=== PATIENT | female | born 2000 | race African-American/Black ===

== ENCOUNTER 2023-04-10 10:50 | Emergency (ER) | payer OTHER, SELFPAY ==
[2023-04-10 10:59] VITALS: BP 107/73; PULSE 107; RESP 12; TEMP 36.6; O2SAT 99
--- NOTE | 2023-04-10 11:30 | ED_ITS ---
HPI - Allergic Reaction General Date Seen: 04/10/23 Chief complaint: Allergic Reaction Stated complaint: Allergic reaction this AM--itchy throat, nausea Time Seen by Provider: 04/10/23 11:12 Source: patient Mode of arrival: ambulatory Limitations: no limitations History of Present Illness HPI narrative: Patient is a 22-year-old female presenting to the emergency department for an allergic reaction. She states she has had some nausea and a scratchy throat so she went to her clinic on campus. They gave her Benadryl. After she got the Benadryl she has been feeling much better and states she almost feels back to normal other than a little bit of nausea. She states she was told by her wastewater treatment plant chemist to go to urgent care or emergency department whenever she has an allergic reaction to get a tryptase level checked. She states the neurology she is aware of his aches but does not remember having any aches today. She has been checked for several allergies in the past. Not know of any recent changes to nodular detergent, soaps, etc. no other concerns noted at this time Related Data Home Medications Medication Instructions Recorded Confirmed No Known Home Medications 04/10/23 04/10/23 Allergies Allergy/AdvReac Type Severity Reaction Status Date / Time Egg Derived Allergy Unknown Hives Verified 04/10/23 10:58 Review of Systems Status of ROS Reports: 10 or more systems reviewed and unremarkable except as noted in History and below Exam Narrative: Exam Narrative: Const: Well-nourished, Well-developed, in no distress Eyes: PERRL, no conjunctival injection, and symmetrical lids HENT: Atraumatic external nose and ears. Moist mucous membranes. Neck: Symmetric, trachea midline, No thyromegaly. CVS: RRR, No murmurs or gallops. Peripheral pulses 2+ and equal in all extremities RESP: Unlabored respiratory effort. Clear to auscultation bilaterally. GI: Nontender/Nondistended, No rebound or guarding. MSK:Extremities w/o deformity, Normal Active ROM Skin: Warm, Dry. No rashes or lesions. Neuro: Normal Muscle tone, No focal neurological deficits. Psych: Awake, Alert, & Oriented x3. Appropriate mood and affect. Const: Vital Signs, click to edit/add: Vital Signs - 24 hr 04/10/23 10:59 04/10/23 12:36 Temperature 97.8 F 97.8 F Pulse Rate [Pulse Oximeter] 107 H 107 H Respiratory Rate 12 12 Blood Pressure [Ri ght Upper Arm] 107/73 107/73 Pulse Oximetry 99 Oxygen Delivery Me thod Room Air Course Vital Signs Vital signs: Initial Vital Signs Temperature 97.8 F 04/10/23 10:59 Temperature Source Temporal Artery Scan 04/10/23 10:59 Pulse Rate 107 H 04/10/23 10:59 Pulse Rhythm Regular 04/10/23 10:59 Respiratory Rate 12 04/10/23 10:59 Blood Pressure 107/73 04/10/23 10:59 Blood Pressure Mean 84 04/10/23 10:59 Blood Pressure Position Sitting 04/10/23 10:59 Pulse Oximetry 99 04/10/23 10:59 Oxygen Delivery Method Room Air 04/10/23 10:59 Vital Signs Temperature 97.8 F 04/10/23 10:59 Pulse Rate 107 H 04/10/23 10:59 Respiratory Rate 12 04/10/23 10:59 Blood Pressure 107/73 04/10/23 10:59 Pulse Oximetry 99 04/10/23 10:59 Oxygen Delivery Method Room Air 04/10/23 10:59 Temperature 97.8 F 04/10/23 12:36 Pulse Rate 107 H 04/10/23 12:36 Respiratory Rate 12 04/10/23 12:36 Blood Pressure 107/73 04/10/23 12:36 Pulse Oximetry 99 04/10/23 10:59 Oxygen Delivery Method Room Air 04/10/23 10:59 Medications Administered Medications: Discontinued Medications Generic Name Dose Route Start Last Admin Trade Name Charbelq PRN Reason Stop Dose Admin Ondansetron HCl 4 mg 04/10/23 11:44 04/10/23 11:45 Ondansetron Odt 4 Mg Tab PO 04/10/23 11:45 4 mg ONCE ONE Administration MDM - Allergic Reaction MDM Narrative Medical decision making narrative: Patient is a 22-year-old female presenting to emergency department for an allergic reaction. Symptoms have resolved at this time. I offered her some Zofran so for her mild nausea but she states she did not want any. She states she feels back to normal at this time and just wants surgery taste level checked. This was ordered. Vital signs are stable and physical exam shows no concerning findings. While she was getting labs done she is feeling more nauseated and this time accepted Zofran. I believe she is safe for discharge. She is agreeable to this plan. Tryptase level is a send out lab Discharge Plan Discharge Clinical Impression: Allergic reaction Qualifiers: Encounter type: initial encounter Qualified Code(s): T78.40XA - Allergy, unspecified, initial encounter Patient Disposition: Home, Self-Care Condition: Improved Instructions: General Allergic Reaction (ED) Additional Instructions: Return for new worsening symptoms. A tryptase level will return next few days Prescriptions: No Action No Known Home Medications Follow Up/Referrals: Provider,Not a Local [Primary Care Provider] - Stand Alone Forms: Vital Energi Info Instructions
--- OUTSIDE RECORDS SUMMARY | 2023-04-10 11:37 | XMS_ITS | Clinical Summary ---
Author Name Unknown Organization [facility] Address [address] [place] [address] Care Team Providers Care Instructor Of Spanish Name Role Phone Scotty Mora MD Primary Care Provider [phone] Source Comments You are receiving this document as you are listed as the primary care provider,follow-up provider, or the patient has been referred to you for consultation.This is in compliance with the Medicare and[facility] E[facility]centive [facility],which states Providers who transition their patient to another setting of careor provider of care or refers their patient to another provider of care shouldprovide summary care record for each transition of care or referral. [employer] Allergies Active Allergy Reactions Criticality Noted Date Comments Eggs Or Egg-Derived Products Rash,Nausea And Vomiting [employer] 10/15/2018 Medications Medication Sig Dispensed Refills Start Date End Date Status EPINEPHrine (EPIPEN 2-DORIE) 0.3 MG/0.3ML injectionIndicatio ns:Allergy to eggs Inject 0.3 mL intramuscularly once as needed for up to 1 dose. 1 Each 2 11/20/2020 Active ALBUterol sulfate HFA 108 (90 Base) MCG/ACT inhalerIndications :Mild intermittent asthma without complication (HRC) Inhale 2 Puffs every 4 hours as needed for Wheezing, Shortness of Breath or Other. Also use 15-30 min prior to exercise 1 Each 6 11/20/2020 Active Multiple Vitamin Essential Take 1 Tablet by mouth daily. 30 Tablet 11 02/15/2022 Active ferrous fumarate 325 (106 Fe) MGIndications:Iron Deficiency Take 1 Tablet by mouth daily with food. Indications: Iron Deficiency 90 Tablet 3 05/17/2022 Active EPINEPHrine (EPIPEN) 0.3 MG/0.3ML injection Inject 0.3 mL (0.3 mg) intramuscularly as needed (for allergic reaction). May repeat. 2 Each 11 10/14/2022 Active azelastine (ASTELIN) 0.1 % nasal solutionIndication s:Epistaxis,Season al allergic rhinitis due to pollen Place 1 [place] into both nostrils two times a day. 30 mL 3 01/03/2023 Active Additional Information Patient not taking.Reported on 02/18/2023 flunisolide (NASAREL) 25 MCG/ACT (0.025%) nasal solutionIndication s:Seasonal allergic rhinitis due to pollen,Hypertrophy of nasal turbinates Place 2 Sprays into both nostrils two times a day. 15 mL 6 02/18/2023 Active Active Problems Problem Noted Date Diagnosed Date PTSD (post-traumatic stress disorder) 03/17/2023 Generalized anxiety disorder 03/17/2023 Flat foot 10/26/2020 Overview: Added automatically from request for surgery [id number] Vesicular skin lesions 08/31/2020 Social anxiety in childhood 08/31/2020 Soft tissue mass 12/31/2018 Overview: Added automatically from request for surgery [id number] Mild intermittent asthma 12/13/2013 Allergy to eggs 11/14/2011 Allergic rhinitis 01/11/2011 Allergic conjunctivitis 01/11/2011 Resolved Problems Problem Noted Date Diagnosed Date Resolved Date CAREPLAN: [facility] 4 08/17/2013 Overview: Background: Engaged in Disease Management-Asthma:Gabriela Anthony RN [phone] Goals/Recommendations: Asthma 01/07/2012 01/07/2012 Allergy to peanuts 01/11/2011 2 Encounters Date Type Department Care Team Description 02/27/2023 10:20 PM HANDBAG DESIGNER E-Visit [facility] [address] [place] [address] Scotty Mora MD Dx: Social anxiety in childhood (HRC) (Primary Dx) 02/18/2023 11:15 AM HANDBAG DESIGNER [facility] [address] [place] [address] Tracie Michael PA-C DNS (deviated nasal septum) (Primary Dx); Seasonal allergic rhinitis due to pollen; Hypertrophy of nasal turbinates; Rhinorrhea; Nasal obstruction 01/14/2023 2:45 PM CDT Ancillary Procedure [facility] [place] [address] [place] [address] Tracie Michael PA-C TMJ (temporomandibular joint disorder) from Last 3 Months Immunizations Name Administration Dates Next Due 4vHPV (Gardasil) 10/24/2014 9vHPV (Gardasil 9) 11/29/2015,11/29/2014 DTaP 06/24/2007, 5,04/25/2003,2002,2002 Flu Vac (3+ yrs) 01/20/2021 Q5D5-Oeyxitybmv 03/30/2009,02/22/2009 HepA Ped/Adol (1-18 yrs) 10/06/2008,10/13/2007 HepA, Unspecified Formulation 10/06/2008, 008 HepB Adult (Heplisav-B, 19+ yrs, 2 dose series) 12/06/2021 Hib (ActHIB) 12/30/2005 Hib (HbOC) 12/30/2005 Hib, Unspecified Formulation 12/31/2003,04/25/19 04 Hib/HBV 11/22/2003,03/01/2003,2002 IPV (Polio) 06/24/2007, 4,03/01/2003,2002 Influenza IIV4 (Quadrivalent ) 0.5mL (31391) 02/15/2022,01/14/2020,12/01/2018,2017,05/16/2017,11/29/2015,01/04/2015 Influenza LAIV (Nasal, 2-49 yrs) 01/07/2013 Influenza Vaccine (3+years) ([facility]) 03/23/2008,02/22/2005 MCV4 (Menactra) 07/16/2013 MCV4 Menveo 2m.+ (two vial) 10/15/2018, 4 MMR 06/24/2007,11/22/2003 Pfizer Bivalent 12+ 02/15/2022 Pfizer Monovalent 12+ Purple Top 04/17/2021,09/28,09/21/2020 Pneumococcal 7, PED 11/15/2004, 4,03/01/2003,2002 Tdap 11/25/2012 Typhoid (Typhim Vi, IM) 07/16/2013 Varicella 06/24/2007,11/22/2003 Family History Medical History Relation Name Comments Cataract Negative Family History Glaucoma Negative Family History Macular Degeneration Negative Family History Relation Name Status Comments Father Alive Mother Alive Brother Alive Sister 1 Alive Sister 2 Alive Social History Tobacco Use Types Packs/Day Years Used Date Smoking Tobacco: Never Smokeless Tobacco: Never Comments:No smoke exp Alcohol Use Standard Drinks/Week Comments No 0 (1 standard drink = 0.6 oz pur e alcohol) PHQ-2 Answer Date Recorded PHQ-2 Score 0 02/15/2022 Sex and Gender Information Value Date Recorded Sex Assigned at Not on file Gender Identity Not on file Sexual Orientation Not on file Last Filed Vital Signs Vital Sign Reading Time Taken Comments Blood Pressure 106/72 10/14/2022 3:29 PM CDT Pulse 93 10/14/2022 3:29 PM CDT Temperature 36.3 ??C (97.3 ??F) 10/14/2022 3:29 PM CD T Respiratory Rate 16 10/14/2022 3:29 PM CDT Oxygen Saturation 100% 09/09/2022 9:03 PM CDT Inhaled Oxygen Concentration - - Weight 57.7 kg (127 lb 3.2 oz) 10/14/2022 3:29 P M CDT Height 167.6 cm (5' 6) 10/14/2022 1:49 PM CDT Body Mass Index 20.53 10/14/2022 1:49 PM CDT Plan of Treatment Upcoming Encounters Date Type Department Care Team Description 05/16/2023 11:40 AM HANDBAG DESIGNER Appointment [facility] [address] [place] [address] Suzanne Joshua MD [address] [place], [place] [phone] Health Maintenance Due Date Last Done Comments Hep C Screening (Preventive Services) 2002 Pneumococcal (1 - PCV) 2008 5, 04/25/2003, 03/01/2003, Additional history exists Chlamydia 10/16/2019 10/15/2018 Adult Preventive Visit 11/20/2021 , 01/14/2020, 10/15/2018, Additional history exists DTaP/Tdap/Td (7 - Tdap) 11/25/2022 11/26/19 13, 06/24/2007, 11/15/2004, Additional history exists COVID-19 Vaccine (5 - 2022-2 4 season) 2022 02/15/2022, 04/17/2021, 10/13/2020, Additional history exists Influenza (#1) 2022 02/15/2022, 12/30, 01/14/2020, Additional history exists Asthma ACT 02/15/2023 02/15/2022, 01/29, 03/07/2020, Additional history exists Zoster/Shingles (1 of 2) 2052 Hib Completed 12/30/2005, 05/2005, 12/31/2003, Additional history exists IPV (Polio) Completed 06/24/2007, 04/01, 03/01/2003, Additional history exists Varicella Completed 06/24/2007, 11/22/2003 HepA Completed 10/06/2008, 11/2008, 10/13/2007, Additional history exists HPV Vaccine Completed 11/29/2015, 03/2014, 10/24/2014 HIV Screening (Preventive Services) Completed 10/15/2018 MCV4 Completed 10/15/2018, 06/29, 07/16/2013 HepB Completed 12/06/2021, 10/30, 03/01/2003, Additional history exists Medical Devices Implanted Type Area Kitchen Food Assembler Device Identifier Shelf Expiration Date Model / Serial / Lot Bone Blck Tricort Lg - [id number] Implanted:Qty: 1 on 02/26/2021 by Dk Rocha DPM at [facility] BIOLOGIC Right: FOOT [employer] - [employer] 07/19/2025 [id number] / [id number] / Bone Chip Canc 15cc 82392 - [id number] Implanted:Qty: 1 on 02/26/2021 by Dk Rocha DPM at [facility] BIOLOGIC Right: FOOT [employer] - [employer] 07/19/2025 [id number] / [id number] / Plt Profyle Hand Lk 3-D 3x2h - [id number] Implanted:Qty: 1 on 02/26/2021 by Dk Rocha DPM at [facility] DEVICE Right: FOOT [employer] [id number] / / 1.7 X 14mm Variax 2 Non Locking Screw Implanted:Qty: 1 on 02/26/2021 by Dk Rocha DPM at [facility] DEVICE Right: FOOT [id number] / NA / NA Variax 2 Locking Screw Implanted:Qty: 2 on 02/26/2021 by Dk Rocha DPM at [facility] DEVICE Right: FOOT [id number] / / Variax 2 Locking Screw Implanted:Qty: 1 on 02/26/2021 by Dk Rocha DPM at [facility] DEVICE Right: FOOT [id number] / / Procedures Procedure Name Priority Date/Time Associated Diagnosis Comments AEROBIC CULTURE Routine 02/18/2023 11:58 AM HANDBAG DESIGNER Rhinorrhea CT NECK SOFT TISSUE W IV CONT Routine 01/14/2023 3:42 PM CDT TMJ (temporomandibular joint disorder) CREATININE/GFR, WB POC Routine 01/14/2023 2:59 PM CDT from Last 3 Months Results * Aerobic Culture (02/18/2023 11:58 AM HANDBAG DESIGNER) Aerobic Culture Normal Babs; No Pathogens Present 02/23/2023 2:13 PM HANDBAG DESIGNER [facility] Gram Smear Rare PMN's Present 02/23/2023 2:13 PM HANDBAG DESIGNER [facility] Gram Smear No Organisms Seen 02/23/2023 2:13 PM HANDBAG DESIGNER [facility] Drainage NOSE AND NASOPHARYNX STRUCTURE / Unknown Non-blood Collection / Unknown 02/18/2023 11:58 AM HANDBAG DESIGNER 02/18/2023 4:32 PM HANDBAG DESIGNER Tracie Micahel PA-C LAB_[address] [address], [facility] [phone] * CT Neck Soft Tissue W IV Cont (01/14/2023 3:42 PM CDT) Anatomical Region Laterality Modality Neck, C-Spine, Spine, Vascular C omputed Tomography 01/14/2023 3:42 PM CDT Narrative 01/15/2023 9:58 AM CDT EXAM: CT NECK SOFT TISSUE W IV CONT LOCATION: [facility] DATE: 01/14/2023 INDICATION: Soft tissue swelling, infection suspected, neck xray done, Unspecified temporomandibular joint disorder. COMPARISON: None. CONTRAST: IOHEXOL 350 MG/ML IV SOLN 100 mL TECHNIQUE: Routine CT Soft Tissue Neck with IV contrast. Multiplanar reformats. Dose reduction techniques were used. FINDINGS: MUCOSAL SPACES/SOFT TISSUES: Normal mucosal spaces of the upper aerodigestive tract. No mucosal mass or inflammation identified. Normal vocal cords and infraglottic trachea. Normal parapharyngeal space and subcutaneous soft tissues. Normal oral cavity, surgery scheduler spaces, and floor of mouth structures. LYMPH NODES: No pathologic lymph nodes by size or morphology criteria. SALIVARY GLANDS: Normal parotid and submandibular glands. THYROID: Normal. VESSELS: Vascular structures of the neck are patent. VISUALIZED INTRACRANIAL/ORBITS/SINUSES: No abnormality of the visualized intracranial compartment or orbits. Visualized paranasal sinuses and mastoid air cells are clear. OTHER: No destructive osseous lesion. The included lung apices are clear. IMPRESSION: 1. ??Normal soft tissue neck CT. Procedure Note Charli Rodrigues MD - 01/15/2023 EXAM: CT NECK SOFT TISSUE W IV CONT [facility] DATE: 01/14/2023 INDICATION: Soft tissue swelling, infection suspected, neck xray done,Unspecified temporomandibular joint disorder. COMPARISON: None. CONTRAST: IOHEXOL 350 MG/ML IV SOLN 100 mL TECHNIQUE: Routine CT Soft Tissue Neck with IV contrast. Multiplanarreformats. Dose reduction techniques were used. FINDINGS: MUCOSAL SPACES/SOFT TISSUES: Normal mucosal spaces of the upperaerodigestive tract. No mucosal mass or inflammation identified. Normalvocal cords and infraglottic trachea. Normal parapharyngeal space andsubcutaneous soft tissues. Normal oral cavity, surgery scheduler spaces, andfloor of mouth structures. LYMPH NODES: No pathologic lymph nodes by size or morphology criteria. SALIVARY GLANDS: Normal parotid and submandibular glands. THYROID: Normal. VESSELS: Vascular structures of the neck are patent. VISUALIZED INTRACRANIAL/ORBITS/SINUSES: No abnormality of the visualizedintracranial compartment or orbits. Visualized paranasal sinuses andmastoid air cells are clear. OTHER: No destructive osseous lesion. The included lung apices areclear. IMPRESSION: 1. Normal soft tissue neck CT. Tracie Michael PA-C RAD CT * (ABNORMAL) Creatinine/GFR, WB POC (01/14/2023 2:59 PM CDT) Creatinine, Whole Blood 0.5(L) 0.6 - 1.0 mg/dL 01/14/2023 3:03 PM CDT [facility] Performing Location [facility] 01/14/2023 3:03 PM CDT [facility] GFR, Estimated >60 >60 mL/min/1.7 3m2 01/14/2023 3:03 PM CDT [facility] Blood 01/14/2023 2:59 PM CDT 01/14/2023 3:03 PM CDT Tracie M Fernanda FINK [facility] [address] [place] [address], [facility] [phone] from Last 3 Months Advance Directives Latest Code Status on File Code Status Date Activated Date Inactivated Comments Full Code 02/26/2021 6:23 AM 02/26/2021 2:20 PM Code Status History Code Status Date Activated Date Inactivated Comments Full Code 03/22/2019 11:22 AM 03/22/2019 4:08 PM Care Teams Instructor Of Spanish Relationship Specialty Start Date End Date Scotty Mora MD [address] [place], [place] [phone] PCP - General Internal Medicine 05/15/16
--- OUTSIDE RECORDS SUMMARY | 2023-04-10 11:37 | XMS_ITS | Encounter Summary ---
Author Name Unknown Organization [facility] Address [address] [place] [address] Care Team Providers Care Civil Geotechnical Engineer Name Role Phone Scotty Mora MD Primary Care Provider [phone] Reason for Referral * Consult/Transfer Care (Routine) - New Request Specialty Diagnoses / Procedures Referred By García ross Referred To Contact Diagnoses Social anxiety in childhood (HRC) Scotty Mora MD [address] [place] [address] Referral ID Status Reason Start Date Expiration Date V isits Requested Visits Authorized [id number] New Request 03/05/2023 06/03/2024 1 1 Scheduling Instructions Your clinician has recommended an appointment with Behavioral Health. You may call [phone] to schedule your appointment. This recommended service/s may not be covered by your health plan (health insurance). To find out your specific benefit coverage, please call the number on your insurance card.?? Please note that in order to maintain access for all patients, Behavioral Health does have a late cancellation policy.?? In order to avoid being restricted from scheduling future appointments in Behavioral Health you will need to cancel at least 48 hours in advance. We request you that you arrive 30 minutes before your first appointment to complete paperwork. Question Answer Appointment Urgency? Urgent Reason for request? Female provider please. 22-year-old female with severe social anxiety. Please assist with counseling. Requested Services? Therapy/Counseling Pt aware and agrees to this order: Confirmed with patient PEDIATRICIAN Reason for Visit * Reason Comments REFERRAL REQUEST Entered automaticall y based on patient selection in [facility]. Encounter Details Date Type Department Care Team Description 02/27/2023 10:20 PM PODOPEDIATRICIAN E-Visit [facility] [address] [place] [address] Scotty Mora MD [address] [place] [address] Dx: Social anxiety in childhood (HRC) (Primary Dx) Social History Tobacco Use Types Packs/Day Years [...] on file Sexual Orientation Not on file documented as of this encounter Plan of Treatment Upcoming Encounters Date Type Department Care Team Description 05/16/2023 11:40 AM PODOPEDIATRICIAN Appointment [facility] [address] [facility] [place], [place] [phone] Suzanne Joshua MD [address] [place] [id number] Scheduled Referrals Name Type Priority Associated Diagnoses Orde r Schedule Behavioral Health Referral Routine Social anxiety in childhood (HRC) Ordered: 03/05/2023 documented as of this encounter Visit Diagnoses Diagnosis Social anxiety in childhood (HRC)- Primary Shyness disorder of childhood documented in this encounter Care Teams Civil Geotechnical Engineer Relationship Specialty Start Date End Date Scotty Mora MD [address] [place] [address] PCP - General Internal Medicine 05/15/16 documented as of this encounter
--- OUTSIDE RECORDS SUMMARY | 2023-04-10 11:38 | XMS_ITS | Encounter Summary ---
Author Name Unknown Organization [facility] Address [address], [place] [address] Care Team Providers Care Elephant Tamer Name Role Phone Scotty Mora MD Primary Care Provider Reason for Visit * Reason Comments FOLLOW-UP,ER * Consult/Transfer Care (Routine) - Closed Specialty Diagnoses / Procedures Referred By García t Referred To Contact Diagnoses Atypical chest pain Mike Crowley MD [address] [place] [id number] Referral ID Status Reason Start Date Expiration Date Visits Re quested Visits Authorized [id number] Closed 09/09/2022 12/08/2022 1 1 Encounter Details Date Type Department Care Team Description 10/14/2022 3:30 PM CDT Office Visit [facility] [address] [facility] [place], [place] [phone] Scotty Mora MD [address] [place], [place] [phone] Precordial catch syndrome (Primary Dx); Mild intermittent asthma without complication (HRC); Social anxiety disorder (HRC) Social History Tobacco Use Types Packs/Day Years [...] on file documented as of this encounter Last Filed Vital Signs Vital Sign Reading Time Taken Comments Blood Pressure 106/72 10/14/2022 3:29 PM CDT Pulse 93 10/14/2022 3:29 PM CDT Temperature 36.3 ??C (97.3 ??F) 10/14/2022 3:29 PM CD T Respiratory Rate 16 10/14/2022 3:29 PM CDT Oxygen Saturation - - Inhaled Oxygen Concentration - - Weight 57.7 kg (127 lb 3.2 oz) 10/14/2022 3:29 P M CDT Height - - Body Mass Index 20.53 10/14/2022 1:49 PM CDT documented in this encounter Patient Instructions * Patient Instructions* Scotty Mora MD - 10/14/2022 3:30 PM CDT Go to [employer] and login using forgot password. Commit to seeing a counselor for anxiety and even bring up other concerns as you feel comfortable. Send me a message in the next 6 weeks to give me an update. NO concerns about the chest pain. If it is changing let me know. * Attachments The following attachments cannot be sent through Care Everywhere. * Social Anxiety Disorder (Khmer) documented in this encounter Progress Notes * Scotty Mora MD - 10/14/2022 3:30 PM CDT Historical: Chief Complaint Patient presents with FOLLOW-UP,ER Emergency Department Follow-Up Which emergency department were you seen at? [facility] Date of Emergency Department Visit? September 09 What were you seen for? Chest pain Do you know what tests were performed while you were there? YES, X-ray and ekg Did you receive any treatment(s) in the emergency room? No Since you were seen in the emergency department, have your symptoms improved, worsened or stayed the same? Stayed the same- pain comes and goes Since about age 9. Sharp pain, usually about 30 seconds duration, can take her breath away for a few seconds. Then goes away. Typically about once every 6 months. In the past 2 years about every 1-2 months and now about everyother week. Seen at [facility]. ECG normal, CXR normal. Mild intermittent asthma, typically would be dyspnea, wheezing, coughing. Triggers: Cold air. URI and pollen. No ER/UC or steroids in the past year. Albuterol less than every month. 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 Social anxiety has gotten worse. Has some friends but not really close. One friend from high school. I have personally reviewed the patient's allergies, medications, and past medical history in detailand updated the patient record as necessary. Observed: BP 106/72 (BP Location: Right Arm, BP Cuff Size: Regular) Pulse 93 Temp 97.3 ??F (36.3 ??C) (Tympanic) Resp 16 Wt 127 lb 3.2 oz (57.7 kg) LMP 09/30/2022 (Approximate) BMI 20.53 kg/m?? Physical Exam: General: Appears stated age, alert and comfortable HEENT: PERRL, no conjunctival injection, TM's and canals normal, Neck: Supple, thyroid normal, no nodes, no bruits CV: regular rate and rhythm, normal S1 and S2 without murmur or click. No tenderness over the sternum-costal margin Skin: no significant abnormalities noted Ext: warm and dry, no edema present. Assessment/Plan: Recurrent chest pain. Sharp in nature and localized. Lasting seconds to a few minutes and worse with a deep breath. ECG normal, chest x-ray normal. Typical for precordial catch syndrome. We reviewed the diagnosis. Mild intermittent asthma. Infrequent albuterol use. Okay to continue current therapy. Social phobia. Struggling with some isolation on her college campus. 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 I have recommended and referred her for counseling in the past but she had mentioned that her mother instead thought she should go to yazdanism more. She is aware of counseling services on the college campus. She will commit to pursuing the services for assistance with her social phobia. She does not want medication therapy. No suicidal ideation. Follow-up in 2 months. Please see orders and patient instructions Scotty Mora MD documented in this encounter Plan of Treatment Upcoming Encounters Date Type Department Care Team Description 05/16/2023 11:40 AM OVERNIGHT HOUSEPERSON Appointment [facility] [address] [facility] [place] [address] Suzanne Joshua MD [address] [place], [place] [phone] Scheduled Referrals Name Type Priority Associated Diagnoses Orde r Schedule Establish Primary Care Referral Routine Atypical chest pain Ordered: 09/09/2022 documented as of this encounter Visit Diagnoses Diagnosis Precordial catch syndrome- Primary Chest pain, unspecified Mild intermittent asthma without complication (HRC) Unspecified asthma Social anxiety disorder (HRC) Social phobia documented in this encounter Care Teams Elephant Tamer Relationship Specialty Start Date End Date Scotty Mora MD [address] [place] [address] PCP - General Internal Medicine 05/15/16 documented as of this encounter
--- OUTSIDE RECORDS SUMMARY | 2023-04-10 11:38 | XMS_ITS | Encounter Summary ---
Author Name Unknown Organization [facility] Address [address], [place] [address] Care Team Providers Care Dermatological Surgeon Name Role Phone Scotty Mora MD Primary Care Provider [phone] Reason for Visit * Reason Comments APPOINTMENT REQUEST Encounter Details Date Type Department Care Team Description 12/31/2022 Telephone [facility] [address] [place] [address]. [place] [address] Suzanne Joshua MD [address] [place] [phone] APPOINTMENT REQUEST Social History Tobacco Use Types Packs/Day Years [...] on file documented as of this encounter Nursing Notes * Oneida Patrick - 01/03/2023 8:23 AM CDT Incoming call from patient's mother, Vicenta, yesterday (01/02). Mother was offered the next available and she declined. * Oneida Patrick - 01/01/2023 9:39 AM CDT [email or web address] - no mailroom coordinator needed * Gladys Conti RN - 12/31/2022 2:09 PM CDT Pt can be scheduled next available. Gladys Conti RN 12/31/2022, 2:09 PM * Hamida Miller - 12/31/2022 12:41 PM CDT No referral found on chart, only referrals from 2021 mentioning allergies. Please advise if pt should be seen sooner than next available, thank you Hamida Miller 12/31/2022, 12:42 PM * Liza Lomeli - 12/31/2022 12:38 PM CDT Appointments - Same Day/Sooner Patient would like appointment with: her ENT provider Primary Cobbler Apprentice: Scotty Mora MD If requested clinician is unavailable, is it okay to be seen by another clinician? Yes Patient requesting appointment for: Problems with mouth and jaw, referral has been sent. Wants/Needs to be seen within: 2 week(s) Is it okay to leave detailed message on your voicemail? Yes documented in this encounter Plan of Treatment Upcoming Encounters Date Type Department Care Team Description 05/16/2023 11:40 AM SCHOOL BUS MECHANIC Appointment [facility] [address] [place] [address]. [place] [id number] Suzanne Joshua MD [address] [facility] [id number] documented as of this encounter Visit Diagnoses Not on filedocumented in this encounter Care Teams Dermatological Surgeon Relationship Specialty Start Date End Date Scotty Mora MD [address] [place] [id number] PCP - General Internal Medicine 05/15/16 documented as of this encounter
--- OUTSIDE RECORDS SUMMARY | 2023-04-10 11:38 | XMS_ITS | Encounter Summary ---
Author Name Unknown Organization [facility] Address [address] [address] Care Team Providers Care Straightedge Machine Operator Helper Name Role Phone Scotty Mora MD Primary Care Provider [phone] Reason for Visit * Reason Comments CONSULT Allergies/Asthma * Consult/Transfer Care (Routine) - New Request Specialty Diagnoses / Procedures Referred By Contac t Referred To Contact Diagnoses Allergic rhinitis, unspecified seasonality, unspecified trigger Pedro Menard, TIMING INSPECTOR, DNP [address] [place] [address] Referral ID Status Reason Start Date Expiration Date V isits Requested Visits Authorized [id number] New Request 02/15/2022 05/17/2023 1 1 Encounter Details Date Type Department Care Team Description 10/14/2022 1:15 PM CDT [facility] [address] [place] [address]. [place] [address] Maya Dowling MD [address] [place] [address] Breathing Test, Hs Allergy Allergy to eggs (Primary Dx); Anaphylaxis, initial encounter Social History Tobacco Use Types Packs/Day Years [...] Sign Reading Time Taken Comments Blood Pressure 102/67 10/14/2022 1:49 PM CDT Pulse 99 10/14/2022 1:49 PM CDT Temperature - - Respiratory Rate - - Oxygen Saturation - - Inhaled Oxygen Concentration - - Weight 58.1 kg (128 lb 1.6 oz) 10/14/2022 1:49 P M CDT Height 167.6 cm (5' 6) 10/14/2022 1:49 PM CDT Body Mass Index 20.68 10/14/2022 1:49 PM CDT documented in this encounter Patient Instructions * Patient Instructions* Maya Dowling MD - 10/14/2022 1:15 PM CDT Labs today Don't use that oil again It would be unlikely that something topical caused reactions like nausea, diarrhea, shortness of breath. Will check some additional labs since you had these symptoms as well Please recheck a tryptase within 2 hours of future suspected allergic reactions (I ordered so if [facility] can just request, otherwise please take a photo of this and show an ER or UC physician to order) Epipen if needed Continue eating baked egg! I recommend doing this most days (at least 3x/week) which appears to make resolution of egg allergy more likely Baked egg=3rd ingredient or lower on ingredient list or 1 egg per cup of flour in 6 servings. No more than one serving at a time. If the smell of it cooking bothers you OK to just keep going with the donuts three times a week. :) Follow-up with myself or Dr. Goncalves in a year, sooner if needed documented in this encounter Progress Notes * Maya Dowling MD - 10/14/2022 1:15 PM CDT S: Josie Worrell is here for follow-up, previously saw Dr. Goncalves. From her note in 2019: Pt and mother report a life long history of egg allergy. She was previously followed by Dr. Stanley. She had positive IgE to egg. Mom and patieint have a hard time providing detailed history. In the past she has had facial swelling and difficulty breathing with eggs. She reports that she was toleratedbaked egg rarely. This summer she ate donuts and developed immediate facial swelling. She has avoided all baked egg and straight egg since that time. They have epipen but she has never had to use. She is tolerating peanuts, wheat, milk. Had testing done in the past for these foods, but toleratesthem without reaction. This summer she ate pistachios and 1 day later developed itching red rash on stomach. Rash lasted 4weeks and resolved with use of topical hydrocortisone. They have a hard time characterizing rash. Raised red patches that were itchy. Did not migrate like hives. No other associated symptoms. Eats nuts very rarely, but has tolerated almonds before. She has mild occasional rhinorrhea and sneezing. No seasonal correlation. No nasal congestion. Pt reports she is minimally bothered by this. Not using any nasal sprays or allergy meds. Flonase has been prescribed in the past. She has a history of mild intermittent asthma. Exercise and cold can trigger. Only uses albuterol several times per year. Last use about 1 year ago. Does not use before exercise. She doesn't have a reason for seeing a new provider, she was happy with her last one but her mom made this appointment. At last visit skin testing negative to pistachio, + to egg, recommended avoiding all egg including baked. Also + to dust, discussed avoidance, did trial flonase, discussed SCIT/SLIT. Asthma was well controlled, continued albuterol prn Interim history: She is here for a new problem. In March of this year she used a new hair oil that was her sisters. About 10 minutes later her stomach was hurting she had vomiting and diarrhea, herhead was itchy, she developed some facial swelling and felt short of breath. She shows a photo was some mild swelling around her nose and eyes. She took Benadryl and went to bed and it was improved but still present the next day. Then it resolved. She does not think that she accidentally eat any eggs. She had not really eaten anything around that time. She does eat beef at times but does not remember if she would had that around that time. She did try eating baked egg in a doughnut and it went well so she can continue to do that. She does have dust mite allergy but does not think that dust mite exposure would have caused her symptoms. No new medications/NSAIDs around that time O: O: Gen: NAD HEENT: NCAT, Nose normal colored mucosa, no swelling of turbinates, minimal clear mucus, no polyps OP no exudate or erythema Lungs: Clear bilaterally to auscultation without wheezes or crackles and good aeration to the bases. CV: RRR Skin: no hives or eczema noted 01/14/2020 4:00 PM 03/07/2020 2:45 PM 02/15/2021 1:30 PM 02/15/2022 1:00 PM 10/14/2022 1:15 PM SPIROMETRY / BEVERLY / ACT BEVERLY 23 39 FVC Best 2.62 2.64 FVC % 75 65 FEV1 Best 2.35 2.35 FEV1 % 75 66 FEV1/FVC [id number] 89.02 ACT Adult Total 20 25 21 25 Spirometry is unchanged, does appear restricted. BEVERLY is intermediate. ACT indicates good control. Independently interpreted. A/P: 1. Egg allergy, tolerates baked 2. Reaction does sound significant and like it could be anaphylaxis, we do discuss that it would be very unusual for a topical hair product to cause anaphylaxis however. Patient Instructions Labs today Don't use that oil again It would be unlikely that something topical caused reactions like nausea, diarrhea, shortness of breath. Will check some additional labs since you had these symptoms as well Please recheck a tryptase within 2 hours of future suspected allergic reactions (I ordered so if [facility] can just request, otherwise please take a photo of this and show an ER or UC physician to order) Epipen if needed Continue eating baked egg! I recommend doing this most days (at least 3x/week) which appears to make resolution of egg allergy more likely Baked egg=3rd ingredient or lower on ingredient list or 1 egg per cup of flour in 6 servings. No more than one serving at a time. If the smell of it cooking bothers you OK to just keep going with the donuts three times a week. :) Follow-up with myself or Dr. Goncalves in a year, sooner if needed TT>40m including F2F, chart review and documentation documented in this encounter Plan of Treatment Upcoming Encounters Date Type Department Care Team Description 05/16/2023 11:40 AM FIREMAN Appointment [facility] 401 Otolaryngology 401 [facility]. [place], [place] [phone] Suzanne Joshua MD [address] [place] [address] Scheduled Orders Name Type Priority Associated Diagnoses Orde r Schedule Tryptase Total Lab Routine Allergy to eggs Anaphylaxis, initial encounter Expected: 10/28/2022 (Approximate), Expires: 04/16/2024 documented as of this encounter Results * Alpha-Galactose, IgE (10/14/2022 2:32 PM CDT) IgE Alpha Galactose <0.10 <0.10 kU/L 10/15/2022 12:59 AM CDT [facility] Comment:Class = 0 Blood Venipuncture / Unknown 10/14/2022 2:32 PM CDT 10/14/2022 2:32 PM CDT Narrative [facility] - 10/15/2022 12:59 AM CDT Clinical correlation is indicated for all class levels. Any diagnosis or treatment plan must be made by the clinician based on test results, individual history, the clinician's knowledge of the patient, as well as their clinical judgement. Maya Chance MD LAB_1 [facility] [address] [phone] * (ABNORMAL) IgE, Egg Components (10/14/2022 2:32 PM CDT) Egg White, IgE 13.40(H) <0.35 kU/L 10/15/2022 12:59 AM CDT [facility] Comment:Class = 3 Ovalbumin (GAL D2) 6.28(H) <0.10 kU/L 10/15/2022 12:59 AM CDT [facility] Ovomucoid (GAL D1) 1.53(H) <0.10 kU/L 10/15/2022 12:59 AM CDT [facility] Blood Venipuncture / Unknown 10/14/2022 2:32 PM CDT 10/14/2022 2:32 PM CDT Narrative [facility] - 10/15/2022 12:59 AM CDT Clinical correlation is indicated for all class levels. Any diagnosis or treatment plan must be made by the clinician based on test results, individual history, the clinician's knowledge of the patient, as well as their clinical judgement. Maya Chance MD LAB_1 Performing Organization Address [facility]/ZIP Co de Phone Number [facility] [address] [phone] * Tryptase Total (10/14/2022 2:32 PM CDT) Tryptase Level 5.6 <=10.9 ug/L 10/16/2022 12:55 PM CDT [facility] Comment: Performed By: [facility] [address] [place] [address] Public Health Informatician: Booker Anderson MD, PhD Blood Venipuncture / Unknown 10/14/2022 2:32 PM CDT 10/14/2022 2:32 PM CDT Maya Chance MD LAB_1 Performing Organization Address [facility]/ZIP Co de Phone Number [facility] [address] [place], [place] [phone] [place] [phone] documented in this encounter Visit Diagnoses Diagnosis Allergy to eggs- Primary Anaphylaxis, initial encounter documented in this encounter Care Teams Straightedge Machine Operator Helper Relationship Specialty Start Date End Date Scotty Mora MD [address] [place] [address] PCP - General Internal Medicine 05/15/16 documented as of this encounter
--- OUTSIDE RECORDS SUMMARY | 2023-04-10 11:38 | XMS_ITS | Encounter Summary ---
Author Name Unknown Organization [facility] Address [address] [place] [address] Care Team Providers Care Phlebotomy Services Technician Name Role Phone Scotty Mora MD Primary Care Provider [phone] Reason for Visit * Reason Comments Revisit Patient is here for follow up, she was given nasal spray and stopped it. She felt it was not helping. Does not take any allergy medication. Encounter Details Date Type Department Care Team Description 02/18/2023 11:15 AM NATURAL GAS FIELD PROCESSING SUPERVISOR Office Visit Specialty Center 401 Otolaryngology 401 [facility]. [place], [place] [id number] Tracie Michael PA-C [address] [place] [address] DNS (deviated nasal septum) (Primary Dx); Seasonal allergic rhinitis due to pollen; Hypertrophy of nasal turbinates; Rhinorrhea; Nasal obstruction Social History Tobacco Use Types Packs/Day Years [...] on file documented as of this encounter Progress Notes * Tracie Michael PA-C - 02/18/2023 11:15 AM CST OTOLARYNGOLOGY FOLLOW UP CHIEF COMPLAINT/SUBJECTIVE Chief Complaint: Chief Complaint Patient presents with Revisit Patient is here for follow up, she was given nasal spray and stopped it. She felt it was not helping. Does not take any allergy medication. Josie Worrell is an 22 y.o. female who presents for follow up of epistaxis and allergic rhinitis. Du[place] language barrier, a [employer] welfare interviewer was present during the history-taking and subsequent discussion and for the physical exam with this patient. No bleeding source noted on exam previously. She was started on Astelin. She stopped the spray lastweekend. She did not feel it was helping. She has a lot of right paranasal pressure and nose feels blocked. She does sneeze a lot. + rhinorrhea that is brownish yellow. She breathes primarily through her nose. Had left jaw pain and neck CT ordered and referral to TMD clinic placed which was normal. TMD not scheduled yet. ROS: Remainder of Complete Review of Systems is negative PMH, PSH, FH, SH Reviewed in EPIC. OBJECTIVE Her vitals were not taken for this visit. PPE worn:gloves, gown, goggles, N95 and surgical mask GEN: healthy, alert, no distress. HEAD: Normocephalic, atraumatic. No sinus tenderness to palpation EYES: Pupils equal and reactive to light. Extraocular movements intact. No nystagmus. ENT: Nose: right nose with inferior turbinate hypertrophy and thick white rhinorrhea noted in middle andposterior meatus. Left inferior turbinate hypertrophy and left septal deviation causing 60% obstruction. Orpharynx: +mouth breathing. normal NECK: supple and no adenopathy NEURO: Alert and oriented x 3 and Cranial Nerves II - XII grossly intact Facial nerve function House-Brackmann I/ PROCEDURE: Procedure risks and benefits discussed with patient. Verbal consent obtained by patient to perform FNE. FLEXIBLE NASAL ENDOSCOPY FFL was carried out using 1% lidocaine and afrin for topical anesthesia and decongestion. The flexible nasopharyngolaryngoscope was inserted into the nasal cavity and nasopharynx. The following was noted: Septum and inferior turbinates with congested mucosa. Septum deviated to left touching inferior turbinate causing 60% obstruction. Patent middle turbinates and middle meatus with rhinorrhea noted and cultured. Patent nasopharynx and patent eustachian tube orifices. STUDIES REVIEWED: IMAGING: EXAM: CT NECK SOFT TISSUE W IV [...] and subcutaneous soft tissues. Normal oral cavity, sample maker hand spaces, and floor of mouth structures. LYMPH [...] included lung apices are clear. IMPRESSION: 1. Normal soft tissue neck CT. ASSESSMENT ICD-10-CM 1. DNS (deviated nasal septum) J34.2 85945 Nasopharyngoscopy With Endoscope CANCELED: Nasal Endo Dx Uni/Max Sep Proc (20723) 2. Seasonal allergic rhinitis due to pollen J30.1 flunisolide (NASAREL) 25 MCG/ACT (0.025%) nasal solution 51317 Nasopharyngoscopy With Endoscope CANCELED: Nasal Endo Dx Uni/Max Sep Proc (32861) 3. Hypertrophy of nasal turbinates J34.3 flunisolide (NASAREL) 25 MCG/ACT (0.025%) nasal solution 18361 Nasopharyngoscopy With Endoscope CANCELED: Nasal Endo Dx Uni/Max Sep Proc (34552) 4. Rhinorrhea J34.89 Aerobic Culture 53774 Nasopharyngoscopy With Endoscope CANCELED: Nasal Endo Dx Uni/Max Sep Proc ([id number]) 5. Nasal obstruction J34.89 95599 Nasopharyngoscopy With Endoscope CANCELED: Nasal Endo Dx Uni/Max Sep Proc (10340) PLAN Patient with chronic nasal obstruction due to turbinate hypertrophy and allergic rhinitis. Had no improvement with Astelin spray. Has had some rhinorrhea and this was cultured today. Will call abx based on culture. Recommend trying Nasarel BID for now. Discussed findings on neck CT of sinuses that appeared clear but showed DNS and turbinate hypertrophy causing obstruction. She would benefit with turbinate reduction and septoplasty. Will have her f/u with MD in 6 weeks Disposition: Return in about 6 weeks (around 04/01/2023) for f/u with ENT MD to discuss nasal obstruction with DNS and turbinate hypertrophy. Tracie Michael PA-C 02/18/2023, 12:08 PM Billing based on: Complexity RAL GAS FIELD PROCESSING SUPERVISOR documented in this encounter Plan of Treatment Upcoming Encounters Date Type Department Care Team Description 05/16/2023 11:40 AM NATURAL GAS FIELD PROCESSING SUPERVISOR Appointment Specialty Center [address] [place] [address]. [place], [place] [phone] Suzanne Joshua MD [address] [place] [phone] documented as of this encounter Procedures Procedure Name Priority Date/Time Associated Diagnosis Comments AEROBIC CULTURE Routine 02/18/2023 11:58 AM NATURAL GAS FIELD PROCESSING SUPERVISOR Rhinorrhea documented in this encounter Results * Aerobic Culture (02/18/2023 11:58 AM NATURAL GAS FIELD PROCESSING SUPERVISOR) Aerobic Culture Normal Babs; No Pathogens Present 02/23/2023 2:13 PM NATURAL GAS FIELD PROCESSING SUPERVISOR [facility] Gram Smear Rare PMN's Present 02/23/2023 2:13 PM NATURAL GAS FIELD PROCESSING SUPERVISOR [facility] Gram Smear No Organisms Seen 02/23/2023 2:13 PM NATURAL GAS FIELD PROCESSING SUPERVISOR [facility] Drainage NOSE AND NASOPHARYNX STRUCTURE / Unknown Non-blood Collection / Unknown 02/18/2023 11:58 AM NATURAL GAS FIELD PROCESSING SUPERVISOR 02/18/2023 4:32 PM NATURAL GAS FIELD PROCESSING SUPERVISOR Tracie Michael PA-C LAB[facility] [phone] documented in this encounter Visit Diagnoses Diagnosis DNS (deviated nasal septum)- Primary Deviated nasal septum Seasonal allergic rhinitis due to pollen Hypertrophy of nasal turbinates Rhinorrhea Other diseases of nasal cavity and sinuses Nasal obstruction Other diseases of nasal cavity and sinuses documented in this encounter Care Teams Phlebotomy Services Technician Relationship Specialty Start Date End Date Scotty Mora MD [address] [place] [address] PCP - General Internal Medicine 05/15/16 documented as of this encounter
--- OUTSIDE RECORDS SUMMARY | 2023-04-10 11:38 | XMS_ITS | Encounter Summary ---
Author Name Unknown Organization [facility] Address [address], [place] [address] Care Team Providers Care Human Resource Analyst Name Role Phone Scotty Mora MD Primary Care Provider [phone] Encounter Details Date Type Department Care Team Description 10/14/2022 Orders Only [facility] DEPARTMENT Provider, [place] [address] Social History Tobacco Use Types Packs/Day Years [...] Department Care Team Description 05/16/2023 11:40 AM COMMUNICATIONS MAINTAINER Appointment Specialty Center 401 Otolaryngology 401 [place] [place] [address] Suzanne Josuha MD [address] [place] [address] documented as of this encounter Procedures Procedure Name Priority Date/Time Associated Diagnosis Comments SPIROMETRY 10/14/2022 documented in this encounter Results * SPIROMETRY (10/14/2022) Interface Provider MD DUMMY/OTHER/AR documented in this encounter Visit Diagnoses Not on filedocumented in this encounter Care Teams Human Resource Analyst Relationship Specialty Start Date End Date Scotty Mora MD [address] [place] [address] PCP - General Internal Medicine 05/15/16 documented as of this encounter
--- OUTSIDE RECORDS SUMMARY | 2023-04-10 11:38 | XMS_ITS | Encounter Summary ---
Author Name Unknown Organization [facility] Address [address], [place] [address] Care Team Providers Care Surgeon Assistant Name Role Phone Scotty Mora MD Primary Care Provider [phone] Reason for Referral * Consult/Transfer Care (Routine) - Closed Specialty Diagnoses / Procedures Referred By García ross Referred To Contact Diagnoses Atypical chest pain Mike Crowley MD [address] [place] [id number] Referral ID Status Reason Start Date Expiration Date Visits Re quested Visits Authorized [id number] Closed 09/09/2022 12/08/2022 1 1 Scheduling Instructions Your clinician has recommended an appointment with [facility] for your ongoing patient care. You can quickly make your appointment online at [employer]/[email or web address]. You can also call [phone] for help scheduling your appointment. We suggest you call your health insurance company about your coverage and benefits for this appointment. Question Answer Appointment Urgency? Non-Urgent What type of follow up? Routine Reason for visit? Intermittent very short-lived sharp chest pain ongoing since age of 9, happening more frequently this last month Comments Primary Care Provider: Scotty Mora MD * Procedure/Equipment (Routine) - Incomplete Specialty Diagnoses / Procedures Referred By Contac t Referred To Contact Procedures XR Chest 2 Views Jeovany Marino DO [address] [place] [address] Referral ID Status Reason Start Date Expiration Date V isits Requested Visits Authorized [id number] Incomplete 09/09/2022 12/09/2023 1 1 Reason for Visit * Reason Comments Chest Pain Encounter Details Date Type Department Care Team Description 09/09/2022 10:18 PM CDT - 09/09/2022 11:12 PM CDT Emergency [facility] Emergency Dept [address] [place], [place] [phone] Mike Crowley MD [address] [place], [place] [phone] Atypical chest pain (Primary Dx) Discharge Disposition: Home Social History Tobacco Use Types Packs/Day Years [...] Sign Reading Time Taken Comments Blood Pressure 118/79 09/09/2022 9:03 PM CDT Pulse 94 09/09/2022 9:03 PM CDT Temperature 36.7 ??C (98 ??F) 09/09/2022 9:03 PM CDT Respiratory Rate 18 09/09/2022 9:03 PM CDT Oxygen Saturation 100% 09/09/2022 9:03 PM CDT Inhaled Oxygen Concentration - - Weight - - Height - - Body Mass Index - - documented in this encounter Discharge Instructions * Discharge Instructions* Stevie Quach MD - 09/09/2022 10:50 PM CDT As discussed, if your symptoms worsen or you develop new concerning symptoms associated with the chest pain or in frequent skipped beats, please be seen either in primary care clinic or in the emergency department depending on the severity of your symptoms. As discussed someone will call you to help schedule an appointment in the next few days. 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 documented in this encounter Medications at Time of Discharge Medication Sig Dispensed Refills Start Date End Date ALBUterol sulfate HFA 108 (90 Base) MCG/ACT inhalerIndications:Mi ld intermittent asthma without complication (HRC) Inhale 2 Puffs every 4 hours as needed for Wheezing, Shortness of Breath or Other. Also use 15-30 min prior to exercise 1 Each 6 11/20/2020 EPINEPHrine (EPIPEN 2-DORIE) 0.3 MG/0.3ML injectionIndications: Allergy to eggs Inject 0.3 mL intramuscularly once as needed for up to 1 dose. 1 Each 2 11/20/2020 ferrous fumarate 325 (106 Fe) MGIndications:Iron Deficiency Take 1 Tablet by mouth daily with food. Indications: Iron Deficiency 90 Tablet 3 05/17/2022 Multiple Vitamin Essential Take 1 Tablet by mouth daily. 30 Tablet 11 02/15/2022 documented as of this encounter Consult Notes * Ashley Vargas RN - 09/09/2022 11:12 PM CDTAssociated Order(s): ED CONSULT TO CASE MANAGEMENT AFTER HOURS DISCHARGE Field Applications Specialist Note: ED CM asked to assist with primary care referral. Patient was seen in [facility] ED on 09/09/22 for sharp shooting pain in the left anterior portion of the chest. Reviewed chart. Insurance [employer] self insured Primary care physician Scotty Mora at [facility] Specialty care providers: NA ED CM attempted to reach patient with [facility]. No answer left vm requesting a call back. ED CM will tryto reach patient again X2. Ashley Lundy RN-[facility] top lift nailer documented in this encounter ED Notes * Noa Lewis RN - 09/09/2022 11:12 PM CDT Field Applications Specialist Note: ED CM asked to assist with after hours referral for patient with Follow up Appointment Reviewed chart. Insurance: [employer] Self Insured Speciality Care Providers: NA Call to patient and patient confirmed that they would like assistance with scheduling. Pt is not able to follow up with [facility] during the month of August. Requests F/U in September. Prefers PCP Scotty Mora. Call to clinic and secured the following: Friday10/14/22 @ 3:30 pm With Scotty Mora at [facility]. Call back to patient and provided clinic appointment details. Left VM with return call back number No other ED CM needs identified. Noa Lewis RN, BSN top lift nailer * Noa Treviño RN - 09/09/2022 11:11 PM CDT [facility] ED Nursing Discharge Note Arrival Information: Patient arrived: Car Patient escorted by: Self Discharge Information: Patient discharged: Home Patient accompanied by: Transport mode: Discharge instructions given and explained to patient: Follow up appointment review with patient: Yes LDA in place: Patient verbalized understanding of discharge plan and capable of completing discharge plan: Yes Does patient require hand-off or assistance with discharge plan: No Belongings and medication returned to patient and prompted to retrieve weapons: Yes Patient level of pain on discharge: (0-10) Pain Rating: Rest: 4 Holds documented by nursing during this visit - reviewed chart for most current hold status: Yes Legal Status Orders (From admission, onward) None * Stevie Quach MD - 09/09/2022 11:08 PM CDT [facility] Emergency Medicine Visit Note Chief Complaint: Chest Pain HPI 21-year-old female otherwise healthy who presents to the emergency department noting that since theage of 9 she is had sharp shooting pain in the left anterior portion of the chest, she notes that it has been happening slightly more frequently usually, these episodes last mere seconds and did notethat today one episode 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 She also reports that she has a couple of skipped beats that she notice each month, has not happened more frequently than this, does report some occasional dizziness but she does not notes this is happening morefrequently and is not associated with any of her other symptoms that she presents with, denies fever, chills, shortness of breath, abdominal pain, nausea vomiting, diarrhea, rash, new medications, and other symptoms. Triage Vitals [09/09/222102] Temp 98 ??F (36.7 ??C) Temp src Oral Pulse 94 Resp 18 BP 118/79 SpO2 100 % Physical Exam General: Awake alert HEENT: Sclerae anicteric, conjugate gaze CV: Regular rate and rhythm, no audible murmur Respiratory: Even unlabored breathing, normal rate Skin: Warm and dry Neuro: Able ask and answer questions appropriately, able to follow directions Psych: Linear thought process, slightly anxious affect likely appropriate given situation Musculoskeletal: Moving all extremities, appropriate muscle bulk for size MDM: Vitals reassuring, physical exam as above. ECG and chest x-ray obtained and very reassuring, discussed at length plan for follow-up and discussed potential etiologies of pain, patient and father feelcomfortable with discharge and plan for close follow-up, discussed return precautions and patient discharged in stable condition. Stevie Quach MD ED Course as of 09/09/222307Sep 09, 20222248 ATTENDING: I personally saw the patient, performed estrada elements of the visit, and supervised patient care with the emergency department clinician. MDM: chest pain. EKG, CXR. Home [MM] ED Course User Index [MM] Mike Crowley MD Clinical Impressions as of 09/09/222307 Atypical chest pain documented in this encounter Plan of Treatment Upcoming Encounters Date Type Department Care Team Description 05/16/2023 11:40 AM LMFT Appointment Specialty Center [address] [place] [address]. [place] [address] Suaznne Joshua MD [address] [place] [address] Scheduled Referrals Name Type Priority Associated Diagnoses Orde r Schedule Establish Primary Care Referral Routine Atypical chest pain Ordered: 09/09/2022 documented as of this encounter Procedures Procedure Name Priority Date/Time Associated Diagnosis Comments 22412 ELECTROCARDIOGRAM TRACING STAT 09/09/2022 10:21 PM CDT XR CHEST 2 VIEWS STAT 09/09/2022 9:38 PM CDT documented in this encounter Results * ECG 12-LEAD ROUTINE (09/09/2022 10:21 PM CDT) Ventricular Rate 91 BPM [facility] Atrial Rate 91 BPM [facility] P-R Interval 146 ms [facility] QRS Duration 82 ms [facility] QT 368 ms [facility] QTc 452 ms MUSE [facility] P Morrill 55 degrees MUSE [facility] R Morrill 74 degrees MUSE [facility] T Morrill 57 degrees MUSE [facility] 09/09/2022 10:2 1 PM CDT Narrative MUSE [facility] - 09/10/2022 8:59 AM CDT Sinus rhythm Normal ECG No previous ECGs available Confirmed by Jacek Arguello ([id number]) on 09/10/2022 8:59:02 AM Procedure Note Jacek Arguello MD - 09/10/2022 Sinus rhythm Normal ECG No previous ECGs available Confirmed by Jacek Arguello ([id number]) on 09/10/2022 8:59:02 AM Jeovany Marino DO EKG Performing Organization Address City/State/[facility] Co de Phone Number [facility] [address] [place] [address] * XR Chest 2 Views (09/09/2022 9:38 PM CDT) Anatomical Region Laterality Modality Chest, Lung Computed Radiogr aphy 09/09/2022 9:38 PM CDT Narrative 09/09/2022 9:42 PM CDT EXAM: XR CHEST 2 VIEWS LOCATION: [facility] DATE: 09/09/2022 INDICATION: Chest pain, SOB COMPARISON: X-ray 12/21/2013 IMPRESSION: Negative chest. ??The lungs are clear and there are no pleural effusions. Normal heart size. Procedure Note Bishnu Borja MD - 09/09/2022 EXAM: XR CHEST 2 VIEWS LOCATION: [facility] DATE: 09/09/2022 INDICATION: Chest pain, SOB COMPARISON: X-ray 12/21/2013 IMPRESSION: Negative chest. The lungs are clear and there are no pleuraleffusions. Normal heart size. Jeovany CALDERON GD documented in this encounter Visit Diagnoses Diagnosis Atypical chest pain- Primary Other chest pain * Triage Assessment Note - John Vargas RN - 09/09/2022 9:03 PM CDT Chief complaint: Chest Pain Symptoms/background/relevant history (narrative): Pt states earlier she felt her chest was hurting.She couldn't breathe that well. Usually when that happens, she has difficulty breathing. Typically pain would go away after a min. Today, pain lasted longer like hours. States she couldn't talk loud and had to whisper. Difficulty taking deep breath. States pain feel dull now. Not radiating anywhere, localized to the left chest. What is most important to you about your ER visit today? See what is going on documented in this encounter Care Teams Surgeon Assistant Relationship Specialty Start Date End Date Scotty Mora MD [address] [place] [address] PCP - General Internal Medicine 05/15/16 documented as of this encounter
--- OUTSIDE RECORDS SUMMARY | 2023-04-10 11:38 | XMS_ITS | Encounter Summary ---
Author Name Unknown Organization [facility] Address [address] [place] [address] Care Team Providers Care Agricultural Chemicals Inspector Name Role Phone Scotty Mora MD Primary Care Provider [phone] Encounter Details Date Type Department Care Team Description 10/31/2022 Telephone Specialty Center 401 Allergy Clinic 401 [facility] [address] Maya Dowling MD [address] [place] [address] Social History Tobacco Use Types Packs/Day Years [...] as of this encounter Nursing Notes * Josie Pierce RN - 11/21/2022 1:33 PM CDT Unable to reach patient. Sent [employer] message with information from Dr Chance. PETE Galindo 11/21/2022 1:34 PM * Josie Pierce RN - 11/12/2022 11:21 AM CDT Left message to call back. PETE Galindo 11/12/2022 11:21 AM * Josie Pierce RN - 10/31/2022 2:19 PM CDT - Left message to call back. 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 How is it going with the baked egg ingestion? The labs would indicate that this may not be tolerated, but if you have been eating this I would continue doing so like we discussed. Please let me know. documented in this encounter Plan of Treatment Upcoming Encounters Date Type Department Care Team Description 05/16/2023 11:40 AM AIR DEFENSE SPECIALIST Appointment [facility] [address] [place] [address]. [place], [place] [phone] Suzanne Joshua MD [address] [place], [place] [phone] documented as of this encounter Visit Diagnoses Not on filedocumented in this encounter Care Teams Agricultural Chemicals Inspector Relationship Specialty Start Date End Date Scotty Mora MD [address] [place] [address] PCP - General Internal Medicine 05/15/16 documented as of this encounter
--- OUTSIDE RECORDS SUMMARY | 2023-04-10 11:38 | XMS_ITS | Encounter Summary ---
Author Name Unknown Organization [facility] Address [address] [address] Care Team Providers Care Doctor'S Assistant Name Role Phone Scotty Mora MD Primary Care Provider [phone] Reason for Visit * Reason Comments LAB RESULTS Encounter Details Date Type Department Care Team Description 06/20/2022 Telephone [facility] [address] [place] [address] Scotty Mora MD [address] [place] [address] LAB RESULTS Social History Tobacco Use Types Packs/Day Years [...] as of this encounter Nursing Notes * Dean Verdugo RN - 06/21/2022 6:02 PM CDT 06/21/22 6:03 PM Date of service:06/21/2022 6:08 PM Number: Attempt # 2 Pt was seen in Urgent Care. Results called to patient: Plan: Results given to patient. Recommend follow up with PCP. No further questions. Pt understands to follow up in UC or ED sooner for increased symptoms or if symptoms worsens or fails to improve. Pt will follow up with PCP with any questions, refills or further concerns. Patient expresses understanding and agreement with the above plan of care. All questions answers to their sati sfaction. Marimar Verdugo RN Urgent Care 06/21/2022 6:08 PM * Dean Verdugo RN - 06/21/2022 3:32 PM CDT Date of service:06/21/2022 3:32 PM Number: Attempt # 1 No answer. Message left to return call to [phone]. Will attempt to return call at later time. Pt was seen in Urgent Care. Results called to patient: Component Latest Ref Rng & Units 05/17/2022 Sodium 136 - 145 mmol/L 139 Potassium 3.5 - 5.1 mmol/L 3.6 Chloride 98 - 109 mmol/L 105 CO2 20 - 29 mmol/L 26 Anion Gap (calc.) 7 - 16 mmol/L 8 Calcium 8.4 - 10.4 mg/dL 9.3 BUN 7 - 26 mg/dL 14 Creatinine 0.55 - 1.02 mg/dL 0.65 Glucose 70 - 100 mg/dL 82 Hours Fasting 8 GFR, Estimated >60 mL/min/1.73m2 >60 Plan: See clinician recommendations as detailed in note. Josie, Your lab work shows that your red blood cells are slightly low like last time and your hemoglobin is also slightly low. All other labs and tests are normal. Your Ferritin level is at 9, any lower andthis would be low. Follow up with primary provider on this. Kate Hanna, MACHINE SPLITTER, DNP 05/18/2022, 11:35 AM Marimar Verdugo RN Urgent Care 06/21/2022 3:32 PM * Mari Salazar RN - 06/20/2022 3:27 PM CDT Voicemail left for patient asking for return call to [facility] phon[facility]. Mari Salazar RN * Jenae Kenyon - 06/20/2022 9:54 AM CDT Test Results Patient is calling in regards to: a laboratory - test Result comment or letter available? No - Pt is requesting results Date test was done: 05/17/2022 Name of ordering clinician: Kathie Is it okay to leave detailed message on your voicemail? No If a prescription is needed, patient would like it filled at the pharmacy listed in Meds & Orders. Is there anything else I can help you with today? documented in this encounter Plan of Treatment Upcoming Encounters Date Type Department Care Team Description 05/16/2023 11:40 AM MEDIA SERVICES DIRECTOR Appointment [facility]ty [facility] [address] [place] [address]. [place], [place] [phone] Suzanne Joshua MD [address] [place], [place] [phone] documented as of this encounter Visit Diagnoses Not on filedocumented in this encounter Care Teams Doctor'S Assistant Relationship Specialty Start Date End Date Scotty Mora MD [address] [place] [place], [place] [phone] PCP - General Internal Medicine 05/15/16 documented as of this encounter
--- OUTSIDE RECORDS SUMMARY | 2023-04-10 11:38 | XMS_ITS | Encounter Summary ---
Author Name Unknown Organization [facility] Address [address] [address] Care Team Providers Care Finisher Brush Name Role Phone Scotty Mora MD Primary Care Provider [phone] Reason for Visit * Procedure/Equipment (Routine) - Incomplete Specialty Diagnoses / Procedures Referred By Contac t Referred To Contact Diagnoses TMJ (temporomandibular joint disorder) Procedures CT Neck Soft Tissue W IV Cont Tracie Michael PA-C [address] [place] [address] Referral ID Status Reason Start Date Expiration Date V isits Requested Visits Authorized [id number] Incomplete 01/03/2023 04/03/2024 1 1 Encounter Details Date Type Department Care Team Description 01/14/2023 2:45 PM CDT Ancillary Procedure [facility] [address] [facility] [place] [address] Tracie Michael PA-C [address] [place] [address] TMJ (temporomandibular joint disorder) Social History Tobacco Use Types Packs/Day Years [...] Department Care Team Description 05/16/2023 11:40 AM GUARD LIEUTENANT Appointment Specialty Center [address] [place] [address] Suzanne Joshua MD [address] [place] [address] documented as of this encounter Procedures Procedure Name Priority Date/Time Associated Diagnosis Comments CT NECK SOFT TISSUE W IV CONT Routine 01/14/2023 3:42 PM CDT TMJ (temporomandibular joint disorder) CREATININE/GFR, WB POC Routine 01/14/2023 2:59 PM CDT documented in this encounter Results * CT Neck Soft Tissue W IV [...] and subcutaneous soft tissues. Normal oral cavity, cloth measurer machine spaces, and floor of mouth structures. LYMPH [...] space andsubcutaneous soft tissues. Normal oral cavity, cloth measurer machine spaces, andfloor of mouth structures. LYMPH NODES: [...] PM CDT 01/14/2023 3:03 PM CDT Tracie Michael PA-C [facility] [address] [place] [address], [facility] [phone] documented in this encounter Visit Diagnoses Diagnosis TMJ (temporomandibular joint disorder) Temporomandibular joint disorders, unspecified documented in this encounter Administered Medications Inactive Administered Medications - up to 3 most recent administrations Medication Order MAR Action Action Date Dose Rate Site iohexol (OMNIPAQUE 350) 350 MG/ML injection 100 mL 100 mL, Intravenous, ONCE, On Fri01/14/23 at 1530, For 1 dose Given 01/14/2023 3:22 PM CDT 100 mL documented in this encounter Care Teams Finisher Brush Relationship Specialty Start Date End Date Scotty Mora MD [address] [place] [address] PCP - General Internal Medicine 05/15/16 documented as of this encounter
--- OUTSIDE RECORDS SUMMARY | 2023-04-10 11:38 | XMS_ITS | Encounter Summary ---
Author Name Unknown Organization Replaced by [facility] Address [address], [place] [address] Care Team Providers Care Wind Farm Support Specialist Name Role Phone Scotty Mora MD Primary Care Provider [phone] Reason for Referral * Consult/Transfer Care (Routine) - New Request Specialty Diagnoses / Procedures Referred By Contac t Referred To Contact Diagnoses TMJ (temporomandibular joint disorder) Tracie Michael PA-C [address] [place] [id number] Referral ID Status Reason Start Date Expiration Date V isits Requested Visits Authorized [id number] New Request 01/03/2023 04/03/2024 1 1 Scheduling Instructions Your clinician has recommended an appointment with Replaced by [facility]. You may call [phone] to schedule your appointment. We suggest you call your health insurance company about your coverage and benefits for this appointment. Question Answer Appointment Urgency? Non-Urgent Reason for visit TMD/Orofacial Pain Reason for visit? left facial swelling with shift in left jaw with opening mouth * Procedure/Equipment (Routine) - Incomplete Specialty Diagnoses / Procedures Referred By Contac t Referred To Contact Diagnoses TMJ (temporomandibular joint disorder) Procedures CT Neck Soft Tissue W IV Cont Tracie Michael PA-C [address] [place] [address] Referral ID Status Reason Start Date Expiration Date V isits Requested Visits Authorized [id number] Incomplete 01/03/2023 04/03/2024 1 1 Reason for Visit * Reason Comments Consult, New Patient Left jaw pain when opening mouth and chewing on and off for 4 months. Left cheek swelling. Patient states clogged sinuses and Flonase does not work. Encounter Details Date Type Department Care Team Description 01/03/2023 7:45 AM CDT Office Visit Specialty Center [address] Ot[address] 401 [facility] [place] [address] Tracie Michael PA-C [address] [place], [place] [id number] TMJ (temporomandibular joint disorder) (Primary Dx); Bilateral impacted cerumen; Epistaxis; Seasonal allergic rhinitis due to pollen Social History Tobacco Use Types Packs/Day Years [...] Progress Notes * Tracie Michael PA-C - 01/03/2023 7:45 AM CDT OTOLARYNGOLOGY CONSULT CHIEF COMPLAINT: Chief Complaint Patient presents with Consult, New Patient Left jaw pain when opening mouth and chewing on and off for 4 months. Left cheek swelling. Patient states clogged sinuses and Flonase does not work. I was asked to see this patient by Scotty Mora MD HPI: Josie Worrell is a 22 y.o. old female with allergic rhinitis, asthma here today for mouth and jaw issues. Due to language barrier, a Tigrinya vice president quality assurance was present during the history-taking and subsequent discussion and for the physical exam with this patient. Left sided jaw pain has been on and off for 3-4 months, and more persistent last few week. Worse when she is eating and opening her jaw. Pain is morales in nature. Mother believes the left side of cosme looks larger. Hx of braces [id number], continues wearing retainers. Denies popping or clicking in the jaw. No history of grinding or clenching. Tried heat. Denies xerostomia. History of ear infections as young child. She gets a lot of ear wax build up, she has ear drops that she uses and some suction. Ear plugging sensation will come and go. Denies ear pain, drainage. History of allergies entire life to: Dust, Pollen. Does not take antihistamines or nasal sprays. Tried Flonase in the past, she used it consistently, without benefit. No antihistamines. Patient usually breaths through her mouth d/t nasal congestion. Has itchy eyes, occasional ear itching, clear rhinorrhea. Denies PND. Some pressure over checks. Endorses right sided epistaxis most mornings. Noted always when sleeping or waking in AM, coming out anteriorly. Can control bleeding at home. No history of bleeding disorder in family. No rashes no weight loss or gain No nausea or vomiting No fatigue no odynophagia or dysphagia No heartburn or acid reflux No abdominal pain no fevers, chills, night sweats no chest pain, shortness of breath, or cough no stridor or difficulty breathing No impaired renal function ROS: Remainder of all 10 review of systems otherwise negative. Past Medical History: Diagnosis Date Asthma ([facility]) No past surgical history on file. Allergies Allergen Reactions Eggs Or Egg-Derived Products Rash and Nausea And Vomiting Outpatient Medications Prior to Visit Medication Sig Dispense Refill ALBUterol sulfate HFA 108 (90 Base) MCG/ACT inhaler Inhale 2 Puffs every 4 hours as needed for Wheezing, Shortness of Breath or Other. Also use 15-30 min prior to exercise 1 Each 6 EPINEPHrine (EPIPEN 2-DORIE) 0.3 MG/0.3ML injection Inject 0.3 mL intramuscularly once as needed for up to 1 dose. 1 Each 2 EPINEPHrine (EPIPEN) 0.3 MG/0.3ML injection Inject 0.3 mL (0.3 mg) intramuscularly as needed (for allergic reaction). May repeat. 2 Each 11 ferrous fumarate 325 (106 Fe) MG Take 1 Tablet by mouth daily with food. Indications: Iron Deficiency 90 Tablet 3 Multiple Vitamin Essential Take 1 Tablet by mouth daily. 30 Tablet 11 No facility-administered medications prior to visit. Social History Socioeconomic History Marital status: Single Spouse name: Not on file Number of children: Not on file Years of education: Not on file Highest education level: Not on file Occupational History Not on file Tobacco Use Smoking status: Never Smokeless tobacco: Never Tobacco comments: No smoke exp Vaping Use Vaping Use: Never used Substance and Sexual Activity Alcohol use: No Drug use: Not on file Sexual activity: Not on file Other Topics Concern Not on file Social History Narrative Not on file Social Determinants of Health Financial Resource Strain: Not on file Food Insecurity: Not on file Transportation Needs: Not on file Family History Problem Relation Age of Onset Macular Degeneration Negative Family History Glaucoma Negative Family History Cataract Negative Family History OBJECTIVE: Her vitals were not taken for this visit. PPE worn:gloves, gown, goggles, N95 and surgical mask GEN: She is a 22 y.o. female. She is awake, alert and comfortable with the examination. well developed, well nourished, and in no acute distress. Voice is normal. HEAD: Normocephalic, atraumatic. No sinus tenderness to palpation of frontal, ethmoid or maxillary sinuses. Left mild facial swelling noted along masseter muscles. +TMJ tenderness with jaw opening and clicking L>R EYES: Extraocular movements intact. No exophthalmos. No conjunctival redness or hemorrhage. No nystagmus. ENT: Ears: External ears normal. Bilateral ears with cerumen impaction. Nose: hypertrophic congested turbinates bilaterally, R>L; pale boggy mucosa, no epistaxis or ectatic vessel noted. Mouth: Moist mucus membranes. Normal dentition. Tongue is within normal limits without fasciculations or weakness. Buccal mucosa, oropharynx, hypopharynx with normal mucosa, no masses or lesions. Throat: WNL NECK: supple and no adenopathy, mild tenderness, no masses palpated in left parotid. Normal submandibular glands, and thyroid. CHEST: no wheezing, rales, normal symmetric air entry, no tachypnea, retractions or cyanosis NEURO: Alert and oriented x 3 and Cranial Nerves II - XII grossly intact. Bilateral symmetrical facial nerve motion bilateral House Brackman scale I/. ASSESSMENT AND PLAN: ICD-10-CM 1. TMJ (temporomandibular joint disorder) M26.609 CT Neck Soft Tissue W IV Cont Tmd/Orofacial Pain/Oral Medicine Consult Creatinine / GFR 2. Bilateral impacted cerumen H61.23 carbamide peroxide (DEBROX) 6.5 % ear drop solution 3. Epistaxis R04.0 azelastine (ASTELIN) 0.1 % nasal solution 4. Seasonal allergic rhinitis due to pollen J30.1 azelastine (ASTELIN) 0.1 % nasal solution Both ears impacted with cerumen. Recommend Debrox drops BiD x 10 days to both ears. She does have allergic rhinitis and has some epistaxis. No obvious bleeding source noted today. Recommend she try Astelin BID x 6 weeks. Recommend saline spray prn and humidifier in bedroom. Could cauterize nose at next visit. She does have left jaw pain x 4 months. Mild tenderness noted over parotid gland. Discussed conservative measures of ice/heat, massage. Referral placed to TMD clinic. Will also get a neck CT for facial swelling and check left parotid. Disposition: Return in about 6 weeks (around 02/14/2023) for f/u epistaxis/allergic rhinitis and neck CT for TMJ. Tracie Michael PA-C 01/03/2023, 8:32 AM Billing based on: Complexity documented in this encounter Plan of Treatment Upcoming Encounters Date Type Department Care Team Description 05/16/2023 11:40 AM HEAD TENNIS PROFESSIONAL Appointment Specialty Center [address] [place] [address]. [place] [address] Suzanne Joshua MD [address] [place] [address] Scheduled Orders Name Type Priority Associated Diagnoses Orde r Schedule Creatinine / GFR Lab Routine TMJ (temporomandibular joint disorder) Expected: 01/03/2023, Expires: 04/03/2023 Scheduled Referrals Name Type Priority Associated Diagnoses Orde r Schedule Tmd/Orofacial Pain/Oral Medicine Consult Referral Routine TMJ (temporomandibular joint disorder) Ordered: 01/03/2023 documented as of this encounter Results * CT Neck Soft [...] and subcutaneous soft tissues. Normal oral cavity, tip mender spaces, and floor of mouth structures. LYMPH [...] space andsubcutaneous soft tissues. Normal oral cavity, tip mender spaces, andfloor of mouth structures. LYMPH NODES: [...] neck CT. Tracie Michael PA-C RAD CT documented in this encounter Visit Diagnoses Diagnosis TMJ (temporomandibular joint disorder)- Primary Temporomandibular joint disorders, unspecified Bilateral impacted cerumen Impacted cerumen Epistaxis Seasonal allergic rhinitis due to pollen TMJ (temporomandibular joint disorder) Temporomandibular joint disorders, unspecified documented in this encounter Care Teams Wind Farm Support Specialist Relationship Specialty Start Date End Date Scotty Mora MD [address] [place] [address] PCP - General Internal Medicine 05/15/16 documented as of this encounter
--- OUTSIDE RECORDS SUMMARY | 2023-04-10 11:38 | XMS_ITS | Encounter Summary ---
Author Name Unknown Organization [facility] Address [address], [place] [address] Care Team Providers Care Packager And Strapper Name Role Phone Scotty Mora MD Primary Care Provider [phone] Encounter Details Date Type Department Care Team Description 03/18/2019 Consent for Procedure/Treatment [facility] Department INFORMED CONSENT RECORD Social History Tobacco Use Types Packs/Day Years Used Date Smoking Tobacco: Never Smokeless Tobacco: Never Alcohol Use Standard Drinks/Week Comments No 0 (1 standard drink = 0.6 oz pur e alcohol) Sex and Gender Information Value Date Recorded Sex Assigned at Not on file Gender Identity Not on file Sexual Orientation Not on file documented as of this encounter Plan of Treatment Upcoming Encounters Date Type Department Care Team Description 05/16/2023 11:40 AM STRIPPING CUTTER AND WINDER Appointment Specialty Center [address] 401 [facility] [place] [address] Suzanne Joshua MD [address] [place] [address] documented as of this encounter Visit Diagnoses Not on filedocumented in this encounter Additional Health Concerns Infection Onset Date Last Indicated Resolved Time R/O COVID19 11/05/2019 11/05/2019 11/05/2019 6:50 PM CDT COVID19 11/05/2019 11/05/2019 11/26/2019 3:17 AM CDT documented as of this encounter Care Teams Packager And Strapper Relationship Specialty Start Date End Date Scotty Mora MD [address] [place] [address] PCP - General Internal Medicine 05/15/16 documented as of this encounter
--- OUTSIDE RECORDS SUMMARY | 2023-04-10 11:38 | XMS_ITS | Encounter Summary ---
Author Name Unknown Organization [facility] Address [address], [place] [address] Care Team Providers Care Lehr Stripper Name Role Phone Scotty Mora MD Primary Care Provider [phone] Encounter Details Date Type Department Care Team Description 05/17/2022 7:10 PM SOCIAL SERVICES ANALYST Lab Visit [facility] [address] [place] [address] Dizziness; Low ferritin Social History Tobacco Use Types Packs/Day Years [...] Department Care Team Description 05/16/2023 11:40 AM SOCIAL SERVICES ANALYST Appointment Specialty Center [address] [place] [address]. [place], [place] [phone] Suzanne Joshua MD [address] [place] [phone] documented as of this encounter Procedures Procedure Name Priority Date/Time Associated Diagnosis Comments BASIC METABOLIC PANEL STAT 05/17/2022 7:22 PM SOCIAL SERVICES ANALYST Dizziness COMPLETE BLOOD COUNT-NO DIFF Routine 05/17/2022 7:22 PM SOCIAL SERVICES ANALYST Dizziness FERRITIN Routine 05/17/2022 7:22 PM SOCIAL SERVICES ANALYST Low ferritin Dizziness IRON PROFILE (IRON,TIBC,%SAT.(CA LC)) Routine 05/17/2022 7:22 PM SOCIAL SERVICES ANALYST Low ferritin Dizziness documented in this encounter Results * Basic Metabolic Panel (05/17/2022 7:22 PM SOCIAL SERVICES ANALYST) Pathologist [facility] Sodium 139 136 - 145 mmol/L 05/17/2022 8:24 PM [facility] Potassium 3.6 3.5 - 5.1 mmol/L 05/17/2022 8:24 PM [facility] Chloride 105 98 - 109 mmol/L 05/17/2022 8:24 PM [facility] CO2 26 20 - 29 mmol/L 05/17/2022 8:24 PM [facility] Anion Gap 8 7 - 16 mmol/L 05/17/2022 8:24 PM [facility] Calcium 9.3 8.4 - 10.4 mg/dL 05/17/2022 8:24 PM [facility] BUN 14 7 - 26 mg/dL 05/17/2022 8:24 PM [facility] Creatinine 0.65 0.55 - 1.02 mg/dL 05/17/2022 8:24 PM [facility] Glucose 82 70 - 100 mg/dL 05/17/2022 8:24 PM [facility] Comment:The given reference range is for the fasting state. Non-fasting reference range for glucose is 70 - 180 mg/dL. Hours Fasting 8 05/17/2022 8:[address] [facility] GFR, Estimated >60 >60 mL/min/1.7 3m2 05/17/2022 8:24 PM [facility] Blood Venipuncture / Unknown 05/17/2022 7:22 PM SOCIAL SERVICES ANALYST 05/17/2022 7:23 PM SOCIAL SERVICES ANALYST Torito Vázquez MD LAB_[address] [address], [facility] [phone] [facility] [address] [place] [id number] [place] [address] * Ferritin (05/17/2022 7:22 PM SOCIAL SERVICES ANALYST) Pathologist [facility] Ferritin 9 9 - 204 ng/mL 05/17/2022 8:42 PM SOCIAL SERVICES ANALYST [facility] Blood Venipuncture / Unknown 05/17/2022 7:22 PM SOCIAL SERVICES ANALYST 05/17/2022 7:23 PM SOCIAL SERVICES ANALYST Torito Vázquez MD LAB_[address] [address], [facility] [phone] * Iron Profile (Iron,TIBC,%Sat.(Calc)) (05/17/2022 7:22 PM SOCIAL SERVICES ANALYST) [facility] Iron 111 50 - 170 mcg/dL 05/17/2022 8:24 PM [facility] Transferrin 324 180 - 382 mg/dL 05/17/2022 8:24 PM [facility] TIBC, Calculated 405 240 - 450 mcg/dL 05/17/2022 8:24 PM [facility] % Saturation, Calculated 27 10 - 50 % 05/17/2022 8:24 PM [facility] Blood Venipuncture / Unknown 05/17/2022 7:22 PM SOCIAL SERVICES ANALYST 05/17/2022 7:23 PM SOCIAL SERVICES ANALYST Torito Vázquez MD LAB_[address] [address], [facility] [phone] * (ABNORMAL) Complete Blood Count-No Diff (05/17/2022 7:22 PM SOCIAL SERVICES ANALYST) Pathologist [facility] WBC 6.6 3.5 - 10.5 x10(9)/L 05/17/2022 7:[address] [facility] RBC 3.87(L) 3.90 - 5.03 x10(12)/L 05/17/2022 7:[address] [facility] Hemoglobin 11.8(L) 12.0 - 15.5 g/dL 05/17/2022 7:[address] [facility] HCT 35.8 34.9 - 44.5 % 05/17/2022 7:[address] [facility] MCV 92.5 80.0 - 100.0 fL 05/17/2022 7:[address] [facility] MCH 30.5 27.6 - 33.3 pg 05/17/2022 7:[address] [facility] MCHC 33.0 31.5 - 35.2 g/dL 05/17/2022 7:[address] [facility] RDW 13.1 11.9 - 15.5 % 05/17/2022 7:[address] [facility] Platelets 215 150 - 450 x10(9)/L 05/17/2022 7:[address] [facility] Blood Venipuncture / Unknown 05/17/2022 7:22 PM SOCIAL SERVICES ANALYST 05/17/2022 7:23 PM SOCIAL SERVICES ANALYST Torito Vázquez MD LAB_1 [facility] [address] [phone] documented in this encounter Visit Diagnoses Diagnosis Dizziness Dizziness and giddiness Low ferritin Other nonspecific findings on examination of blood documented in this encounter Care Teams Lehr Stripper Relationship Specialty Start Date End Date Scotty Mora MD [address] [place] [address] PCP - General Internal Medicine 05/15/16 documented as of this encounter
--- OUTSIDE RECORDS SUMMARY | 2023-04-10 11:38 | XMS_ITS | Encounter Summary ---
Author Name Unknown Organization [facility] Address [address] [place] [address] Care Team Providers Care Resident Care Aide Name Role Phone Scotty Mora MD Primary Care Provider [phone] Reason for Visit * Reason Comments CHEST PAIN Encounter Details Date Type Department Care Team Description 05/17/2022 6:20 PM EVENTS TRAFFIC CONTROLLER Office Visit [facility] [address] [place] [address] Torito Vázquez MD [facility], [place] [id number] Low ferritin (Primary Dx); Dizziness; Nonspecific chest pain Social History Tobacco Use Types Packs/Day Years [...] Sign Reading Time Taken Comments Blood Pressure 107/75 05/17/2022 6:23 PM EVENTS TRAFFIC CONTROLLER Pulse 100 05/17/2022 6:23 PM EVENTS TRAFFIC CONTROLLER Temperature 36.7 ??C (98.1 ??F) 05/17/2022 6:23 PM CS T Respiratory Rate 16 05/17/2022 6:23 PM EVENTS TRAFFIC CONTROLLER Oxygen Saturation 100% 05/17/2022 6:23 PM EVENTS TRAFFIC CONTROLLER Inhaled Oxygen Concentration - - Weight - - Height - - Body Mass Index - - documented in this encounter Progress Notes * Torito Vázquez MD - 05/17/2022 6:20 PM CST Subjective: Josie Worrell is a 21 y.o.female presents to the Urgent Care for CHEST PAIN Symptoms began: On and off for years per patient ago and were sudden. Symptoms are: unchanged. Pain location: is in the right chest and is in the left chest. Pain Scale: 8/10. Pain Quality: sharp. It stays for few seconds and goes away this has been happening for long time since childhood. Aggravating factors: none. Alleviating factors: nothing. Associated symptoms: Hard to take a deep breath. Recent long rides/air travel/sedentary condition:No Cardiac History: No Patient denies any heavy menstrual cycle. Patient states her nose started bleeding yesterday during the chest pain. Patient also has symptoms of dizziness and lightheadedness. Sometime feels like fainting. sHe has a history of low iron. Complete Review of Systems is otherwise negative Past Medical History: Diagnosis Date Asthma ([facility]) Patient Active Problem List Diagnosis Allergic rhinitis Allergic conjunctivitis Allergy to eggs Mild intermittent asthma ([facility]) Soft tissue mass Vesicular skin lesions Social anxiety in childhood ([facility]C) Flat foot Allergies Allergen Reactions Eggs Or Egg-Derived Products Rash and Nausea And Vomiting Objective: BP 107/75 (BP Location: Left Arm, BP Cuff Size: Regular) Pulse 100 Temp 98.1 ??F (36.7 ??C) (Tympanic) Resp 16 LMP 05/01/2022 (Approximate) SpO2 100% No General: no acute distress. HEENT : atraumatic, normocephalic, ERIKA, EOMI, TM clear bilaterally, Pharynx clear,Normal mucos membranes in nose. Heart: regular rate and rhythm, normal S1 and S2 without murmur or click. Lungs: clear to auscultation, no wheezes or rales. No tenderness on palpation of the chest wall front or back Abdomen: Abdomen soft, non-tender without masses or organomegaly Neck: supple, no lymphadenopathy, no thyromegaly and full range of motion Neuro: No focal deficit, DTR's, strength and sensations are intact and normal Assessment: ICD-10-CM 1. Low ferritin R79.0 Iron Profile (Iron,TIBC,%Sat.(Calc)) Ferritin ferrous fumarate 325 (106 Fe) MG 2. Dizziness R42 Complete Blood Count-No Diff Iron Profile (Iron,TIBC,%Sat.(Calc)) Ferritin Basic Metabolic Panel ferrous fumarate 325 (106 Fe) MG 3. Nonspecific chest pain R07.9 Plan: Cardiac exam normal today. No chest pain at this point. Patient is advised to make an appointment with primary clinic and get further evaluation and management. For the symptoms of dizziness lightheadedness. I have ordered iron studies for the patient. Gave prescription for iron supplement encouraged patient to have healthy balanced diet drink plentyof fluids about 60-70 oz of water and also 12-16 oz of Gatorade bottle daily. Pt showed understanding of these issues and agreed with the plan. This note was created using the [employer] dictating software and therefore should be read withthe understanding of the potential for subtle errors in equine manager.there may be unintended Substitution of words in the dictation Torito Vázquez MD TS TRAFFIC CONTROLLER documented in this encounter Nursing Notes * Sandra Sarmiento CMA - 05/17/2022 6:20 PM CST Josie Worrell is a 21 y.o.female presents to the Urgent Care for CHEST PAIN Symptoms began: On and off for years per patient ago and were sudden. Symptoms are: unchanged. Pain location: is in the right chest and is in the left chest. Pain Scale: 8/10. Pain Quality: sharp. Aggravating factors: none. Alleviating factors: nothing. Associated symptoms: Hard to take a deep breath. Recent long rides/air travel/sedentary condition:No Cardiac History: No Patient states her nose started bleeding yesterday during the chest pain. Sandra Sarmiento CMA TS TRAFFIC CONTROLLER documented in this encounter Plan of Treatment Upcoming Encounters Date Type Department Care Team Description 05/16/2023 11:40 AM EVENTS TRAFFIC CONTROLLER Appointment [facility] 401 Otolaryngology 401 [place] [address] Suzanne Joshua MD [address] [place] [address] documented as of this encounter Results * Basic Metabolic Panel (05/17/2022 7:22 PM EVENTS TRAFFIC CONTROLLER) Sodium 139 136 - 145 mmol/L 05/17/2022 8:24 PM [facility] Potassium 3.6 3.5 - 5.1 mmol/L 05/17/2022 8:24 PM [facility] Chloride 105 98 - 109 mmol/L 05/17/2022 8:24 PM [facility] CO2 26 20 - 29 mmol/L 05/17/2022 8:24 PM [facility] Anion Gap 8 7 - 16 mmol/L 05/17/2022 8:24 PM [facility] Calcium 9.3 8.4 - 10.4 mg/dL 05/17/2022 8:24 PM [facility] BUN 14 7 - 26 mg/dL 05/17/2022 8:24 PM [facility] Creatinine 0.65 0.55 - 1.02 mg/dL 05/17/2022 8:24 PM [facility] Glucose 82 70 - 100 mg/dL 05/17/2022 8:24 PM [facility] Comment:The given reference range is for the fasting state. Non-fasting reference range for glucose is 70 - 180 mg/dL. Hours Fasting 8 05/17/2022 8:24 PM [facility] GFR, Estimated >60 >60 mL/min/1.7 3m2 05/17/2022 8:24 PM [facility] Blood Venipuncture / Unknown 05/17/2022 7:22 PM EVENTS TRAFFIC CONTROLLER 05/17/2022 7:23 PM [facility] Torito Vázquez MD LAB_[address] [address], [facility] [phone] [facility] [address] [place] [address], [facility] [phone] * Ferritin (05/17/2022 7:22 PM EVENTS TRAFFIC CONTROLLER) Pathologist [facility] Ferritin 9 9 - 204 ng/mL 05/17/2022 8:42 PM [facility] Blood Venipuncture / Unknown 05/17/2022 7:22 PM EVENTS TRAFFIC CONTROLLER 05/17/2022 7:23 PM EVENTS TRAFFIC CONTROLLER Torito Vázquez MD LAB_1 Performing Organization Address [facility]/[place] [address], [facility] [phone] * Iron Profile (Iron,TIBC,%Sat.(Calc)) (05/17/2022 7:22 PM EVENTS TRAFFIC CONTROLLER) [facility] Iron 111 50 - 170 mcg/dL 05/17/2022 8:24 PM [facility] Transferrin 324 180 - 382 mg/dL 05/17/2022 8:24 PM [facility] TIBC, Calculated 405 240 - 450 mcg/dL 05/17/2022 8:24 PM [facility] % Saturation, Calculated 27 10 - 50 % 05/17/2022 8:24 PM [facility] Blood Venipuncture / Unknown 05/17/2022 7:22 PM EVENTS TRAFFIC CONTROLLER 05/17/2022 7:23 PM EVENTS TRAFFIC CONTROLLER Torito Vázquez MD LAB_1 Performing Organization Address [facility] [place] [address], [facility] [phone] * (ABNORMAL) Complete Blood Count-No Diff (05/17/2022 7:22 PM EVENTS TRAFFIC CONTROLLER) WBC 6.6 3.5 - 10.5 x10(9)/L 05/17/2022 7:33 PM [facility] RBC 3.87(L) 3.90 - 5.03 x10(12)/L 05/17/2022 7:33 PM [facility] Hemoglobin 11.8(L) 12.0 - 15.5 g/dL 05/17/2022 7:33 PM [facility] HCT 35.8 34.9 - 44.5 % 05/17/2022 7:33 PM [facility] MCV 92.5 80.0 - 100.0 fL 05/17/2022 7:33 PM [facility] MCH 30.5 27.6 - 33.3 pg 05/17/2022 7:33 PM [facility] MCHC 33.0 31.5 - 35.2 g/dL 05/17/2022 7:33 PM [facility] RDW 13.1 11.9 - 15.5 % 05/17/2022 7:33 PM [facility] Platelets 215 150 - 450 x10(9)/L 05/17/2022 7:33 PM [facility] Blood Venipuncture / Unknown 05/17/2022 7:22 PM EVENTS TRAFFIC CONTROLLER 05/17/2022 7:23 PM [facility] Torito Vázquez MD LAB_1 [facility] [address] [phone] documented in this encounter Visit Diagnoses Diagnosis Low ferritin- Primary Other nonspecific findings on examination of blood Dizziness Dizziness and giddiness Nonspecific chest pain documented in this encounter Care Teams Resident Care Aide Relationship Specialty Start Date End Date Scotty Mora MD [address] [place] [address] PCP - General Internal Medicine 05/15/16 documented as of this encounter
--- OUTSIDE RECORDS SUMMARY | 2023-04-10 11:38 | XMS_ITS | Encounter Summary ---
Author Name Unknown Organization [facility] Address [address] [place] [address] Care Team Providers Care Hybrid Tester Name Role Phone Scotty Mora MD Primary Care Provider [phone] Reason for Visit * Reason Comments CHEST PAIN Encounter Details Date Type Department Care Team Description 09/09/2022 Nurse Triage Careline [address] [facility]. [place], [place] [address] Scotty Mora MD [address] [place], [place] [phone] CHEST PAIN Social History Tobacco Use Types Packs/Day Years [...] as of this encounter Nursing Notes * Paula Delgado - 09/09/2022 6:07 PM CDT Verified patient identity: Yes Situation/Background (brief explanation of current symptoms/situation): Transferred from appointment center as mother attempted to make appointment for patient for complaints of heart pain. Was able to speak with patient directly via conference call. Patient reports that she randomly feels that her heart starts hurting. Initially noticed a while ago but is more severe today. Reports really painful sharp, heart pain around 3:30pm. Has decreased in severity but it is still there and reportedly dull. Reports that pain is constant and has been for several hours. Doesn't currently endorse shortness of breath, but did earlier today when taking deep breaths or laughing. Also reports that earlier today it felt as though her heart skipped a beat and was beating fast. Reviewed with patient pertinent medical history (as it related to the call): Yes Reviewed with patient pertinent medications (as they relate to call): Yes Reviewed with patient pertinent allergies (as they relate to call): Yes Reason for Disposition [1] Chest pain (or angina) comes and goes AND [2] is happening more often (increasing in frequency) or getting worse (increasing in severity) (Exception: Chest pains that last only a few seconds.) Protocols used: Chest Keuk-PECBN-ST Plan: Go to ED now. Pt agrees with plan, no further questions. Advised patient/caller to call back CareLine if there are further questions or concerns or to be seen if situation becomes emergent. The CareLine is available 21/10. Paula Nielsen RN Careline 6:24 PM 09/09/2022 documented in this encounter Plan of Treatment Upcoming Encounters Date Type Department Care Team Description 05/16/2023 11:40 AM OBJECT ORIENTED DEVELOPER Appointment Specialty Center [address] [place] [address]. [place], [place] [phone] Suzanne Joshua MD [address] [place] [address] documented as of this encounter Visit Diagnoses Not on filedocumented in this encounter Care Teams Hybrid Tester Relationship Specialty Start Date End Date Scotty Mora MD [address] [place] [address] PCP - General Internal Medicine 05/15/16 documented as of this encounter
--- OUTSIDE RECORDS SUMMARY | 2023-04-10 11:38 | XMS_ITS | Encounter Summary ---
Author Name Unknown Organization [facility] Address [address], [place] [address] Care Team Providers Care Turbinated Bone Grinder Name Role Phone Scotty Mora MD Primary Care Provider [phone] Reason for Visit * Procedure/Equipment (Routine) - Incomplete Specialty Diagnoses / Procedures Referred By García ross Referred To Contact Procedures XR Chest 2 Views Jeovany Marino, DO [address] [place] [address] Referral ID Status Reason Start Date Expiration Date V isits Requested Visits Authorized [id number] Incomplete 09/09/2022 12/09/2023 1 1 Encounter Details Date Type Department Care Team Description 09/09/2022 9:20 PM CDT Ancillary Procedure [facility] [address] [place] [address] Social History Tobacco Use Types Packs/Day Years [...] Department Care Team Description 05/16/2023 11:40 AM PROJECT GEOLOGIST Appointment Specialty Center [address] [place] [address] Suzanne Joshua MD [address] [place] [address] documented as of this encounter Procedures Procedure Name Priority Date/Time Associated Diagnosis Comments XR CHEST 2 VIEWS STAT 09/09/2022 9:38 PM CDT documented in this encounter Results * XR Chest 2 Views (09/09/2022 9:38 PM CDT) Anatomical Region Laterality Modality Chest, Lung Computed Radiogr aphy 09/09/2022 9:38 PM CDT Narrative 09/09/2022 9:42 PM CDT EXAM: XR CHEST 2 VIEWS LOCATION: [facility] DATE: 09/09/2022 INDICATION: Chest pain, SOB COMPARISON: X-ray 12/21/2013 IMPRESSION: Negative chest. ??The lungs are clear and there are no pleural effusions. Normal heart size. Procedure Note Bishnu Borja MD - 09/09/2022 EXAM: XR CHEST 2 VIEWS LOCATION: [facility] DATE: 09/09/2022 INDICATION: Chest pain, SOB COMPARISON: X-ray 12/21/2013 IMPRESSION: Negative chest. The lungs are clear and there are no pleuraleffusions. Normal heart size. Jeovany CALDERON GD documented in this encounter Visit Diagnoses Not on filedocumented in this encounter Care Teams Turbinated Bone Grinder Relationship Specialty Start Date End Date Scotty Mora MD [address] [place] [address] PCP - General Internal Medicine 05/15/16 documented as of this encounter
--- OUTSIDE RECORDS SUMMARY | 2023-04-10 11:38 | XMS_ITS | Encounter Summary ---
Author Name Unknown Organization [facility] Address [address] [address] Care Team Providers Care Form Coverer Name Role Phone Scotty Mora MD Primary Care Provider [phone] Encounter Details Date Type Department Care Team Description 10/14/2022 2:40 PM CDT Lab Visit [facility] Laboratory [address] [place] [address] Allergy to eggs; Anaphylaxis, initial encounter Social History Tobacco Use [...] Department Care Team Description 05/16/2023 11:40 AM SMALL PARTS ASSEMBLER Appointment Specialty Center 401 Otolaryngology 401 [facility]. [place], [place] [phone] Suzanne Joshua MD [address] [place], [place] [phone] documented as of this encounter Procedures Procedure Name Priority Date/Time Associated Diagnosis Comments TRYPTASE TOTAL Routine 10/14/2022 2:32 PM CDT Allergy to eggs Anaphylaxis, initial encounter ALPHA-GALACTOSE, IGE Routine 10/14/2022 2:32 PM CDT Allergy to eggs Anaphylaxis, initial encounter IGE, EGG COMPONENTS Routine 10/14/2022 2 :32 PM CDT Allergy to eggs Anaphylaxis, initial encounter documented in this encounter Results * Alpha-Galactose, IgE (10/14/2022 2:32 PM CDT) IgE Alpha Galactose <0.10 <0.10 kU/L 10/15/2022 12:59 AM CDT [facility] Comment:Class = 0 Blood Venipuncture / Unknown 10/14/2022 2:32 PM CDT 10/14/2022 2:32 PM CDT Narrative [facility] - 10/15/2022 12:59 AM CDT Clinical correlation is indicated for all class levels. Any diagnosis or treatment plan must be made by the clinician based on test results, individual history, the clinician's knowledge of the patient, as well as their clinical judgement. Maya Chance MD LAB_1 Performing Organization Address City/State/[facility] Co de Phone Number [facility] [address] [place] [address], [facility] [phone] * (ABNORMAL) IgE, Egg Components (10/14/2022 2:32 PM CDT) Egg White, IgE 13.40(H) <0.35 kU/L 10/15/2022 12:59 AM CDT [facility] Comment:Class = 3 Ovalbumin (GAL D2) 6.28(H) <0.10 kU/L 10/15/2022 12:59 AM CDT [facility] Ovomucoid (GAL D1) 1.53(H) <0.10 kU/L 10/15/2022 12:59 AM CDT [facility] Blood Venipuncture / Unknown 10/14/2022 2:32 PM CDT 10/14/2022 2:32 PM CDT Narrative [facility] [place] [facility] - 10/15/2022 12:59 AM CDT Clinical correlation is indicated for all class levels. Any diagnosis or treatment plan must be made by the clinician based on test results, individual history, the clinician's knowledge of the patient, as well as their clinical judgement. Maya Chance MD LAB_1 Performing Organization Address City/[facility]/ZIP Co de Phone Number [facility] [address] [phone] * Tryptase Total (10/14/2022 2:32 PM CDT) Tryptase Level 5.6 <=10.9 ug/L 10/16/2022 12:55 PM CDT [facility] Comment: Performed By: [facility] [address] [place] [address] Base Loader: Booker Anderson MD, PhD Blood Venipuncture / Unknown 10/14/2022 2:32 PM CDT 10/14/2022 2:32 PM CDT Maya Chance MD LAB_1 Performing Organization Address [facility] Co de Phone Number [facility] [address] [place], [place] [address] [place] [address] documented in this encounter Visit Diagnoses Diagnosis Allergy to eggs Anaphylaxis, initial encounter documented in this encounter Care Teams Form Coverer Relationship Specialty Start Date End Date Scotty Mora MD [address] [place] [address] PCP - General Internal Medicine 05/15/16 documented as of this encounter
--- OUTSIDE RECORDS SUMMARY | 2023-04-10 11:39 | XMS_ITS | Encounter Summary ---
Author Name Unknown Organization [facility] Address [address] [address] Care Team Providers Care Mold Laminator Name Role Phone Scotty Mora MD Primary Care Provider [phone] Encounter Details Date Type Department Care Team Description 09/16/2011 Correspondence External to [facility] External, [place] [address] IMMUNIZATION RECORD Social History Tobacco Use Types Packs/Day Years Used Date Smoking Tobacco: Never Alcohol Use Standard Drinks/Week Comments Not Asked 0 (1 standard drink = 0.6 oz pur e alcohol) Sex and Gender Information Value Date Recorded Sex Assigned at Not on file Gender Identity Not on file Sexual Orientation Not on file documented as of this encounter Progress Notes * External, Provider - 09/16/2011 12:00 AM CDT documented in this encounter Plan of Treatment Upcoming Encounters Date Type Department Care Team Description 05/16/2023 11:40 AM PULPER OPERATOR Appointment Specialty Center [address] [place] [address]. [place] [address] Suzanne Joshua MD [address] [place], [place] [phone] documented as of this encounter Visit Diagnoses Not on filedocumented in this encounter Additional Health Concerns Infection Onset Date Last Indicated Resolved Time R/O COVID19 11/05/2019 11/05/2019 11/05/2019 6:50 PM CDT COVID19 11/05/2019 11/05/2019 11/26/2019 3:17 AM CDT documented as of this encounter Care Teams Mold Laminator Relationship Specialty Start Date End Date Scotty Mora MD [address] [place] [address] PCP - General Internal Medicine 05/15/16 documented as of this encounter
--- OUTSIDE RECORDS SUMMARY | 2023-04-10 11:39 | XMS_ITS | Encounter Summary ---
Author Name Unknown Organization [facility] Address [address] [place] [address] Care Team Providers Care Applied Psychology Teacher Name Role Phone Scotty Mora MD Primary Care Provider [phone] Encounter Details Date Type Department Care Team Description 11/14/2011 Correspondence [facility] 401 Allergy Clinic 401 [facility] [place] [address] Ramana Stanley MD [address] [place] [address] ANAPHYLAXIS [employer] PLAN Social History Tobacco Use Types Packs/Day Years Used Date Smoking Tobacco: Never Alcohol Use Standard Drinks/Week Comments Not Asked 0 (1 standard drink = 0.6 oz pur e alcohol) Sex and Gender Information Value Date Recorded Sex Assigned at Not on file Gender Identity Not on file Sexual Orientation Not on file documented as of this encounter Progress Notes * Ramana Stanley MD - 11/14/2011 12:00 AM CDT documented in this encounter Plan of Treatment Upcoming Encounters Date Type Department Care Team Description 05/16/2023 11:40 AM SHELL COREMAKER Appointment Specialty [place] [address] Ot[address] 401 [facility]. [place], [place] [phone] Suzanne Joshua MD [address] [place] [address] documented as of this encounter Visit Diagnoses Not on filedocumented in this encounter Additional Health Concerns Infection Onset Date Last Indicated Resolved Time R/O COVID19 11/05/2019 11/05/2019 11/05/2019 6:50 PM CDT COVID19 11/05/2019 11/05/2019 11/26/2019 3:17 AM CDT documented as of this encounter Care Teams Applied Psychology Teacher Relationship Specialty Start Date End Date Scotty Mora MD [address] [place] [address] PCP - General Internal Medicine 05/15/16 documented as of this encounter
--- OUTSIDE RECORDS SUMMARY | 2023-04-10 11:39 | XMS_ITS | Encounter Summary ---
Author Name Unknown Organization [facility] Address [address], [place] [address] Care Team Providers Care Supervisor Cell Room Name Role Phone Scotty Mora MD Primary Care Provider Encounter Details Date Type Department Care Team Description 09/17/2011 Correspondence External to [facility] External, [place] [address] IMMUNIZATION RECORD Social History Tobacco Use Types [...] encounter Progress Notes * External, Provider - 09/17/2011 12:00 AM CDT documented in this encounter Plan of Treatment Upcoming Encounters Date Type Department Care Team Description 05/16/2023 11:40 AM VOCATIONAL TEACHER Appointment Specialty Center [address] [place] [address]. [place] [address] Suzanne Joshua MD [address] [place], [place] [phone] documented as of this encounter Visit Diagnoses Not on filedocumented in this encounter Additional Health Concerns Infection Onset Date Last Indicated Resolved Time R/O COVID19 11/05/2019 11/05/2019 11/05/2019 6:50 PM CDT COVID19 11/05/2019 11/05/2019 11/26/2019 3:17 AM CDT documented as of this encounter Care Teams Supervisor Cell Room Relationship Specialty Start Date End Date Scotty Mora MD [address] [place] [address] PCP - General Internal Medicine 05/15/16 documented as of this encounter
--- OUTSIDE RECORDS SUMMARY | 2023-04-10 11:39 | XMS_ITS | Encounter Summary ---
Author Name Unknown Organization [facility] Address [address], [place] [address] Care Team Providers Care Field Operations Coordinator Name Role Phone Scotty Mora MD Primary Care Provider [phone] Encounter Details Date Type Department Care Team Description 09/30/2017 Correspondence None No Primary/Referring, Phy PROOF OF DELIVERY Social History Tobacco Use Types Packs/Day Years [...] Department Care Team Description 05/16/2023 11:40 AM PILOT PLANT SUPERVISOR Appointment Specialty Center 401 Otolaryngology 401 [facility] [place] [address] Suzanne Joshua MD [address] [place], [place] [phone] documented as of this encounter Visit Diagnoses Not on filedocumented in this encounter Additional Health Concerns Infection Onset Date Last Indicated Resolved Time R/O COVID19 11/05/2019 11/05/2019 11/05/2019 6:50 PM CDT COVID19 11/05/2019 11/05/2019 11/26/2019 3:17 AM CDT documented as of this encounter Care Teams Field Operations Coordinator Relationship Specialty Start Date End Date Scotty Mora MD [address] [place] [address] PCP - General Internal Medicine 05/15/16 documented as of this encounter
--- OUTSIDE RECORDS SUMMARY | 2023-04-10 11:39 | XMS_ITS | Encounter Summary ---
Author Name Unknown Organization [facility] Address [address], [place] [address] Care Team Providers Care [facility] Name Role Phone Scotty Mora MD Primary Care Provider [phone] Encounter Details Date Type Department Care Team Description 09/16/2011 Correspondence External to [facility] External, [place] [address] IMMUNIZATION RECORD Social History Tobacco Use Types [...] Department Care Team Description 05/16/2023 11:40 AM REINSURANCE CLAIM ANALYST [facility] [address] [place] [address]. [place] [address] Suzanne Joshua MD [address] [place], [place] [phone] documented as of this encounter Visit Diagnoses Not on filedocumented in this encounter Additional Health Concerns Infection Onset Date Last Indicated Resolved Time R/O COVID19 11/05/2019 11/05/2019 11/05/2019 6:50 PM CDT COVID19 11/05/2019 11/05/2019 11/26/2019 3:17 AM CDT documented as of this encounter Care Teams [facility] Relationship Specialty Start Date End Date Scotty Mora MD [address] [place] [address] PCP - General Internal Medicine 05/15/16 documented as of this encounter
--- OUTSIDE RECORDS SUMMARY | 2023-04-10 11:39 | XMS_ITS | Encounter Summary ---
Author Name Unknown Organization [facility] Address [address], [place] [address] Care Team Providers Care After School Program Coordinator Name Role Phone Scotty Mora MD Primary Care Provider [phone] Encounter Details Date Type Department Care Team Description 12/13/2013 Correspondence [facility] [address] [facility] [place] [address] Madiha Patiño MD [address] [place] [address] PROOF OF DELIVERY Social History Tobacco Use [...] Department Care Team Description 05/16/2023 11:40 AM STEEL DIE PRESS SET UP OPERATOR [facility]ointment [facility] 401 Otolaryngology 401 [facility] [place] [place] [address] Suzanne Joshua MD [address] [place] [phone] documented as of this encounter Visit Diagnoses Not on filedocumented in this encounter Additional Health Concerns Infection Onset Date Last Indicated Resolved Time R/O COVID19 11/05/2019 11/05/2019 11/05/2019 6:50 PM CDT COVID19 11/05/2019 11/05/2019 11/26/2019 3:17 AM CDT documented as of this encounter Care Teams After School Program Coordinator Relationship Specialty Start Date End Date Scotty Mora MD [address] [place] [address] PCP - General Internal Medicine 05/15/16 documented as of this encounter
--- OUTSIDE RECORDS SUMMARY | 2023-04-10 11:39 | XMS_ITS | Encounter Summary ---
Author Name Unknown Organization [facility] Address [address] [place] [address] Care Team Providers Care Tank Wagon Operator Name Role Phone Scotty Mora MD Primary Care Provider [phone] Encounter Details Date Type Department Care Team Description 11/23/2011 Correspondence [facility] [address] [place] [address]. [place] [address] Ramana Stanley MD [address] [place] [address] REQUEST TO ADMIN MEDICATION AT SCHOOL Social History Tobacco Use Types Packs/Day Years [...] Progress Notes * Ramana Stanley MD - 11/23/2011 12:00 AM CDT documented in this encounter Plan of Treatment Upcoming Encounters Date Type Department Care Team Description 05/16/2023 11:40 AM INFORMATICS SPECIALIST [facility]ointment [facility] 401 Otolaryngology 401 [place] [address] Suzanne Joshua MD 401 [place] [address] documented as of this encounter Visit Diagnoses Not on filedocumented in this encounter Additional Health Concerns Infection Onset Date Last Indicated Resolved Time R/O COVID19 11/05/2019 11/05/2019 11/05/2019 6:50 PM CDT COVID19 11/05/2019 11/05/2019 11/26/2019 3:17 AM CDT documented as of this encounter Care Teams Tank Wagon Operator Relationship Specialty Start Date End Date Scotty Mora MD [address] [place] [address] PCP - General Internal Medicine 05/15/16 documented as of this encounter
--- OUTSIDE RECORDS SUMMARY | 2023-04-10 11:39 | XMS_ITS | Encounter Summary ---
Author Name Unknown Organization [facility] Address [address] [place] [address] Care Team Providers Care Master Pilot Name Role Phone Scotty Mora MD Primary Care Provider [phone] Encounter Details Date Type Department Care Team Description 11/14/2011 Correspondence [facility] 401 Allergy Clinic 401 [facility] [place] [address] Ramana Stanley MD [address] [place] [address] ANAPHYLAXIS ACTION PLAN Social History Tobacco [...] Department Care Team Description 05/16/2023 11:40 AM CLINIQUE COUNTER MANAGER Appointment [facility] 401 Otolaryngology 401 [facility] [place]. [place], [place] [phone] Suzanne Joshua MD [address] [place] [address] documented as of this encounter Visit Diagnoses Not on filedocumented in this encounter Additional Health Concerns Infection Onset Date Last Indicated Resolved Time R/O COVID19 11/05/2019 11/05/2019 11/05/2019 6:50 PM CDT COVID19 11/05/2019 11/05/2019 11/26/2019 3:17 AM CDT documented as of this encounter Care Teams Master Pilot Relationship Specialty Start Date End Date Scotty Mora MD [address] [place] [address] PCP - General Internal Medicine 05/15/16 documented as of this encounter
[2023-04-10] MEDS: ONDANSETRON ODT 4 MG TAB PO (11:45)
[2023-04-10 12:35] VITALS: BP 114/77; PULSE 72; RESP 12; O2SAT 100
[2023-04-10 12:36] VITALS: BP 107/73; PULSE 107; RESP 12; TEMP 36.6
== END 2023-04-10 12:36 | disposition home or self-care (01) ==
PROVIDERS: Emergency Provider Student in an Organized Health Care Education/Training Program
DX: T78.40XA Allergy, unspecified, initial encounter (principal)
CPT/HCPCS: 36415; 83520; 99282; 99283; A9270

== ENCOUNTER 2023-04-18 21:33 | Emergency (ER) | payer OTHER, SELFPAY ==
[2023-04-18 21:36] VITALS: BP 117/78; PULSE 100; RESP 16; TEMP 36.6; O2SAT 99
--- NOTE | 2023-04-18 22:03 | ED.ABDPAIN ---
HPI - Abdominal Pain General Date Seen: 04/18/23 Chief Complaint: Abdominal Pain Stated Complaint: Abdominal pain and passing black stools. Time Seen by Provider: 04/18/23 21:39 Source: patient and family Mode of arrival: ambulatory Limitations: no limitations History of Present Illness HPI narrative: Patient is a delightful 22-year-old female presents here with her father, she has a [employer] student, she has been having black bowel movements now for the last week to 10 days. She was having some abdominal pain but the abdominal pain is markedly improved in last few days. She is having no problems with the eating, in eating normal meals. She is not taking any mocu-bum-juqlgmn medications, but did call the on-call provider line today, they told her that she should probably go to the hospital to be seen. She has no previous history of any bleeding dyscrasias, GI bleeds abdominal surgeries, she is on no chronic medications tells me she is not does not use alcohol. She is here today with her father. She does however have a history of low iron levels. No history of any syncope dizziness or other issues MD elicited complaint: abdominal pain Location: none Severity: mild Migration to: no migration Exacerbating factors: nothing Relieving factors: nothing Associated symptoms: denies other symptoms Related Data Patient : No Home Medications Medication Instructions Recorded Confirmed No Known Home Medications 04/10/23 04/10/23 Allergies Allergy/AdvReac Type Severity Reaction Status Date / Time Egg Derived Allergy Unknown Hives Verified 04/10/23 10:58 Review of Systems Status of ROS Reports: 10 or more systems reviewed and unremarkable except as noted in History and below PFSH PFS Social History Smoking Status: Never smoker How often do you have a drink containing alcohol: never AUDIT-C Alcohol total score: 0 Non-prescribed substance use: denies use Exam Narrative: Exam Narrative: On examination in room 3 she is in no apparent distress she is delightful, pupils equal round reactive to light there is no scleral icterus redness or TMs are normal oropharynx is normal her neck is supple full range of motion is elicited, chest is good air entry bilateral with no wheezing crackles noted heart sounds are normal no clicks murmurs or gallops her abdomen is entirely soft there is no guarding no organomegaly no masses bowel sounds are normal no CVA tenderness is noted she moves all extremities independently well, her conjunctivae are well perfused Const: Vital Signs, click to edit/add: Vital Signs - 24 hr 04/18/23 21:36 Temperature 97.9 F Pulse Rate [Left P ulse Oximeter] 100 Respiratory Rate 16 Blood Pressure [Ri ght Upper Arm] 117/78 Pulse Oximetry 99 Oxygen Delivery Me thod Room Air Documenting provider has reviewed patient's vital signs: yes Course Course ED Course: Patient is requesting to go home, she is unable to have a bowel movement and does not want me to do a rectal examination. Given the fact that her hemoglobin is stable despite black stools, I have a lower suspicion that there is something catastrophic or severely wrong here I think we can let her go home, with the caveats that she should return if she has worsening, which have gone over with her in detail. She is in agreement with this, and the fact she needs to follow up here Vital Signs Vital signs: Initial Vital Signs Temperature 97.9 F 04/18/23 21:36 Temperature Source Temporal Artery Scan 04/18/23 21:36 Pulse Rate 100 04/18/23 21:36 Pulse Rhythm Regular 04/18/23 21:36 Respiratory Rate 16 04/18/23 21:36 Blood Pressure 117/78 04/18/23 21:36 Blood Pressure Mean 91 04/18/23 21:36 Blood Pressure Position Sitting 04/18/23 21:36 Pulse Oximetry 99 04/18/23 21:36 Oxygen Delivery Method Room Air 04/18/23 21:36 Vital Signs Temperature 97.9 F 04/18/23 21:36 Pulse Rate 100 04/18/23 21:36 Respiratory Rate 16 04/18/23 21:36 Blood Pressure 117/78 04/18/23 21:36 Pulse Oximetry 99 04/18/23 21:36 Oxygen Delivery Method Room Air 04/18/23 21:36 Temperature 97.9 F 04/18/23 21:36 Pulse Rate 100 04/18/23 21:36 Respiratory Rate 16 04/18/23 21:36 Blood Pressure 117/78 04/18/23 21:36 Pulse Oximetry 99 04/18/23 21:36 Oxygen Delivery Method Room Air 04/18/23 21:36 MDM - Abdominal Pain MDM Narrative Medical decision making narrative: During the evaluation of this patient I considered multiple differential diagnosis including life-threatening differentials which are appendicitis, aortic aneurysm, mesenteric ischemia, bowel perforation, ectopic , volvulus and bowel obstruction, other differential diagnosis include but are not limited to inflammatory bowel disease, cholecystitis, pancreatitis, hepatitis, gastritis, GERD, diverticulitis, peptic ulcer disease, pyelonephritis/UTI, renal colic/stone, pelvic inflammatory disease, cervicitis, endometritis, intrauterine , dysfunctional uterine bleeding, ovarian cyst/torsion, spontaneous as well as other etiologies I discussed with her, that we could either do a rectal exam, or she leaves a small amount of stool, we consented for fecal occult blood, I also suggest to CBC and she is in agreement. She was taking Benadryl but is not taking Benadryl now, admitted to me that she was having this last time she was here in the emergency room, for allergic reaction but just failed to tell the emergency doctor about it. Medical Records Attestation: I reviewed the patient's medical records. Lab Data Labs: Lab Results 04/18/23 Range/Units 22:15 WBC 6.04 (4.50-11.00) K/uL RBC 4.02 (4.00-5.20) m/uL Hgb 12.3 (12.0-16.0) gm/dL Hct 37.3 (33.0-51.0) % MCV 93 (80-100) fL MCH 31 (26-34) pg MCHC 33 (32-36) gm/dL RDW Coeff of James 12.7 (11.5-15.5) % Plt Count 262 (140-440) K/uL Neut % (Auto) 52.5 (42.0-72.0) % Lymph % (Auto) 37.6 (20-44) % [place] % (Auto) 5.3 (0.0-11.0) % Eos % (Auto) 4.1 (0.0-7.0) % Baso % (Auto) 0.5 (0.0-3.0) % Neut # (Auto) 3.17 (1.7-7.0) K/uL Lymph # (Auto) 2.27 (0.90-2.90) K/uL [place] # (Auto) 0.30 (0.00-0.90) K/UL Eos # (Auto) 0.25 (0.00-0.50) K/uL Baso # (Auto) 0.03 (0.00-0.30) K/uL Abs Immat Gran (auto) 0.00 (0.00-0.30) K/uL Imm/Tot Granulo (auto) 0.0 % Discharge Plan Discharge Clinical Impression: Black stools, Abdominal pain Patient Disposition: Home w/ Parent or Adult Condition: Stable Instructions: Peptic Ulcer (ED), Abdominal Pain (ED), Melena (ED) Additional Instructions: I would recommend continuing to monitor this, follow-up in the clinic next week. If increasing stools, becoming lightheaded, pain worsens, or he starts to vomit up bladder past ericka blood that he need to come back to the emergency room. Avoidance of ibuprofen Aleve an aspirin is also suggested Activity Level: Light activity Prescriptions: No Action No Known Home Medications Follow Up/Referrals: Provider,Not a Local [Primary Care Provider] - Stand Alone Forms: [employer] Info Instructions
[2023-04-18 22:20] LABS: Basophils Absolute Auto 0.03 K/uL (0.00-0.30); Basophils Percent Auto 0.5 % (0.0-3.0); Eosinophils Absolute Auto 0.25 K/uL (0.00-0.50); Eosinophils Percent Auto 4.1 % (0.0-7.0); Hematocrit 37.3 % (33.0-51.0); Hemoglobin* 12.3 gm/dL (12.0-16.0); Lymphocytes Absolute Auto 2.27 K/uL (0.90-2.90); Lymphocytes Percent Auto 37.6 % (20-44); Mean Corpuscular HGB Conc 33 gm/dL (32-36); Mean Corpuscular Hemoglobin 31 pg (26-34); Mean Corpuscular Volume 93 fL (80-100); Monocytes Percent Auto 5.3 % (0.0-11.0); Neutrophils Absolute Auto 3.17 K/uL (1.7-7.0); Neutrophils Percent Auto 52.5 % (42.0-72.0); Platelet Count* 262 K/uL (140-440); RDW Coefficient of Variation % 12.7 % (11.5-15.5); Red Blood Count 4.02 m/uL (4.00-5.20); White Blood Count* 6.04 K/uL (4.50-11.00)
[2023-04-18 22:23] LABS: Slide Review Reflex No
--- OUTSIDE RECORDS SUMMARY | 2023-04-18 22:27 | XMS_ITS | Encounter Summary ---
Author Name Unknown Organization [facility] Address [address] [place] [address] Care Team Providers Care Pattern Drafter Name Role Phone Scotty Mora MD Primary Care Provider [phone] Reason for Visit * Reason Comments STOOL, BLOODY ABDOMINAL PAIN Encounter Details Date Type Department Care Team Description 04/18/2023 Nurse Triage Careline [address] [place] [address] Unassigned, Provider [address] [place] [address] STOOL, BLOODY; ABDOMINAL PAIN Social History Tobacco Use Types Packs/Day Years Used Date Smoking Tobacco: Never Smokeless Tobacco: Never Comments:No smoke exp Alcohol Use Standard Drinks/Week Comments No 0 (1 standard drink = 0.6 oz pur e alcohol) PHQ-2 Answer Date Recorded PHQ-2 Score 2 04/14/2023 Sex and Gender Information Value Date Recorded Sex Assigned at Not on file Gender Identity Not on file Sexual Orientation Not on file documented as of this encounter Nursing Notes * Mojgan Marion I RN - 04/18/2023 5:05 PM CST Verified patient identity: Yes Situation/Background (brief explanation of current symptoms/situation): Black stools and abdominal pain had an allergic reaction to food. [place] nauseous and had mucus production, took benadryl. Pt was seen at hospital. Had black stools and blood in stool at hospital but did not tell MD. Bowel movements are all very dark. Has abdominal pain sometimes. Not as often. No pain now. Last BM was this morning. Mixture of black and brown. No red blood. Reviewed with patient pertinent medical history (as it related to the call): Yes Reviewed with patient pertinent medications (as they relate to call): Yes Reviewed with patient pertinent allergies (as they relate to call): Yes Reason for Disposition Black or tarry bowel movements (Exception: Chronic-unchanged black-lester BMs AND is taking iron pills or Pepto-Bismol.) Protocols used: Abdominal Pain - [id number] Plan: Go to Emergency Department at the hospital now. Explained that dark/black stools and abdominal pain is serious and needs ED evaluation even if symptoms have improved some. Pt is currently in [facility] at school Advised patient/caller to call back CareLine if there are further questions or concerns. The CareLine is available 21/10. Pt verbalized understanding and plans to talk with mother first. Mojgan Robert RN 04/18/2023, 5:14 PM NURSE documented in this encounter Plan of Treatment Upcoming Encounters Date Type Department Care Team Description 05/16/2023 11:40 AM MDS NURSE [facility]ointment [facility] 401 Otolaryngology 401 [facility] [place]. [place], [place] [phone] Suzanne Joshua MD [address] [place], [place] [phone] documented as of this encounter Visit Diagnoses Not on filedocumented in this encounter Care Teams Pattern Drafter Relationship Specialty Start Date End Date Scotty Mora MD [address] [place], [place] [phone] PCP - General Internal Medicine 05/15/16 documented as of this encounter
--- OUTSIDE RECORDS SUMMARY | 2023-04-18 22:27 | XMS_ITS | Encounter Summary ---
Author Name Unknown Organization [facility] Address [address], [place] [address] Care Team Providers Care Die Baker Name Role Phone Scotty Mora MD Primary Care Provider [phone] Reason for Visit * Reason Comments FOLLOW-UP,ER * Consult/Transfer Care (Routine) - Closed Specialty Diagnoses / Procedures Referred By García t Referred To Contact Diagnoses Atypical chest pain Mike Crowley MD [address] [place] [address] Referral ID Status Reason Start Date Expiration Date Visits Re quested Visits Authorized [id number] Closed 09/09/2022 12/08/2022 1 1 Encounter Details Date Type Department Care Team Description 10/14/2022 3:30 PM CDT Office Visit [facility] [address] [facility]. [place], [place] [phone] Scotty Mora MD [address] [place], [place] [phone] Precordial catch syndrome (Primary Dx); Mild intermittent [...] - 10/14/2022 3:30 PM CDT Go to [facility] and login using forgot password. Commit to [...] through Care Everywhere. * Social Anxiety Disorder (Korean) documented in this encounter Progress Notes * [...] and now about everyother week. Seen at [facility]. ECG normal, CXR normal. Mild intermittent asthma, typically would be dyspnea, wheezing, coughing. Triggers: Cold air. URI and pollen. No ER/UC or steroids in the past year. Albuterol less than every month. 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 [...] mother instead thought she should go to mormonism more. She is aware of counseling services [...] Department Care Team Description 05/16/2023 11:40 AM SECURITY AND COMPLIANCE ANALYST [facility]ointment [facility] 401 Otolaryngology 401 [facility] [address] Suzanne Joshua MD [address] [place], [place] [phone] Scheduled Referrals Name Type Priority Associated Diagnoses Orde r Schedule Establish Primary Care Referral Routine Atypical chest pain Ordered: 09/09/2022 documented as of this encounter Visit Diagnoses Diagnosis Precordial catch syndrome- Primary Chest pain, unspecified Mild intermittent asthma without complication (HRC) Unspecified asthma Social anxiety disorder (HRC) Social phobia documented in this encounter Care Teams Die Baker Relationship Specialty Start Date End Date Scotty Mora MD [address] [place] [address] PCP - General Internal Medicine 05/15/16 documented as of this encounter
--- OUTSIDE RECORDS SUMMARY | 2023-04-18 22:27 | XMS_ITS | Encounter Summary ---
Author Name Unknown Organization [facility] Address [address], [place] [address] Care Team Providers Care Rotary Furnace Operator Name Role Phone Scotty Mora MD Primary Care Provider [phone] Reason for Visit * Reason Comments APPOINTMENT REQUEST Encounter Details Date Type Department Care Team Description 12/31/2022 Telephone [facility] [address] [place] [address]. [place] [address] Suzanne Joshua MD [address] [place] [phone] APPOINTMENT REQUEST Social History Tobacco Use Types [...] 01/01/2023 9:39 AM CDT [id number] - no parts interpreter needed * Gladys Conti RN - 12/31/2022 [...] like appointment with: her ENT provider Primary Lens Generator: Scotty Mora MD If requested clinician is [...] Department Care Team Description 05/16/2023 11:40 AM MACHINE WOODWORKING SANDER Appointment [facility] [address] [place] [address]. [place] [id number] Suzanne Joshua MD 401 [facility] [place] [id number] documented as of this encounter Visit Diagnoses Not on filedocumented in this encounter Care Teams Rotary Furnace Operator Relationship Specialty Start Date End Date Scotty Mora MD [address] [place] [id number] PCP - General Internal Medicine 05/15/16 documented as of this encounter
--- OUTSIDE RECORDS SUMMARY | 2023-04-18 22:27 | XMS_ITS | Encounter Summary ---
Author Name Unknown Organization [facility] Address [address] [address] Care Team Providers Care Digester Capper Name Role Phone Scotty Mora MD Primary Care Provider [phone] Reason for Visit * Procedure/Equipment (Routine) - Incomplete Specialty Diagnoses / Procedures Referred By Contac t Referred To Contact Diagnoses TMJ (temporomandibular joint disorder) Procedures CT Neck Soft Tissue W IV Cont Tracie Michael PA-C [address] [place] [address] Referral ID Status Reason Start Date Expiration Date V isits Requested Visits Authorized [id number] Incomplete 01/03/2023 04/03/2024 1 1 Encounter Details Date Type Department Care Team Description 01/14/2023 2:45 PM CDT Ancillary Procedure [facility] [address] [facility] [place] [address] Tracie Michael PA-C [address] [place] [address] TMJ (temporomandibular joint disorder) Social [...] Department Care Team Description 05/16/2023 11:40 AM TERRA COTTA MASON Appointment [facility] 401 Otolaryngology 401 [facility] [place] [address] Suzanne Joshua MD [address] [place] [address] documented as of this encounter Procedures Procedure [...] and subcutaneous soft tissues. Normal oral cavity, client technical specialist spaces, and floor of mouth structures. LYMPH [...] space andsubcutaneous soft tissues. Normal oral cavity, client technical specialist spaces, andfloor of mouth structures. LYMPH NODES: [...] LAB[facility] [address] [place] [address], [facility] [phone] documented in this encounter Visit Diagnoses Diagnosis [...] mL documented in this encounter Care Teams Digester Capper Relationship Specialty Start Date End Date Scotty Mora MD [address] [place] [address] PCP - General Internal Medicine 05/15/16 documented as of this encounter
--- OUTSIDE RECORDS SUMMARY | 2023-04-18 22:27 | XMS_ITS | Clinical Summary ---
Author Name Unknown Organization [facility] Address [address] [place] [address] Care Team Providers Care High School French Teacher Name Role Phone Scotty Mora MD Primary Care Provider [phone] Source Comments You are receiving this document as you are listed as the primary care provider,follow-up provider, or the patient has been referred to you for consultation.This is in compliance with the Medicare and[facility] EHR Incentive Program,which states Providers who transition their patient to another setting of careor provider of care or refers their patient to another provider of care shouldprovide summary care record for each transition of care or referral. Gallery AlSharq Allergies Active Allergy Reactions Criticality Noted Date Comments Eggs Or Egg-Derived Products Rash,Nausea And Vomiting [facility] 10/15/2018 Medications Medication Sig Dispensed Refills Start [...] allergic rhinitis due to pollen Place 1 [place] into both nostrils two times a day. [...] Overview: Added automatically from request for surgery [id number] Vesicular skin lesions 08/31/2020 Social anxiety in childhood 08/31/2020 Soft tissue mass 12/31/2018 Overview: Added automatically from request for surgery [id number] Mild intermittent asthma 12/13/2013 Allergy to eggs 11/14/2011 Allergic rhinitis 01/11/2011 Allergic conjunctivitis 01/11/2011 Resolved Problems Problem Noted Date Diagnosed Date Resolved Date CAREPLAN: [facility] 4 08/17/2013 Overview: Background: Engaged in Disease Management-Asthma:Gabriela Anthony RN [phone] Goals/Recommendations: Asthma 01/07/2012 01/07/2012 Allergy to peanuts 01/11/2011 2 Encounters Date Type Department Care Team Description 04/18/2023 Nurse Triage Careline [address] [place] [address] Unassigned, Provider STOOL, BLOODY; ABDOMINAL PAIN 02/27/2023 10:20 PM MEDICAL ASSISTANT CARDIOLOGY E-Visit [facility] [address] [place] [address] Scotty Mora MD Dx: Social anxiety in childhood (HRC) (Primary Dx) 02/18/2023 11:15 AM MEDICAL ASSISTANT CARDIOLOGY Office Visit Specialty Center 401 Otolaryngology 401 [facility] [place] [address] Tracie Michael PA-C DNS (deviated nasal septum) (Primary Dx); Seasonal allergic rhinitis due to pollen; Hypertrophy of nasal turbinates; Rhinorrhea; Nasal obstruction from Last 3 Months Immunizations Name Administration Dates Next Due 4vHPV (Gardasil) 10/24/2014 9vHPV (Gardasil 9) 11/29/2015,11/29/2014 DTaP 06/24/2007, 5,04/25/2003,2002,2002 Flu Vac (3+ yrs) 01/20/2021 [id number] 03/30/2009,02/22/2009 HepA Ped/Adol (1-18 yrs) 10/06/2008,10/13/2007 HepA, Unspecified Formulation 10/06/2008, 008 HepB Adult (Heplisav-B, 19+ yrs, 2 dose series) 12/06/2021 Hib (ActHIB) 12/30/2005 Hib (HbOC) 12/30/2005 Hib, Unspecified Formulation 12/31/2003,04/25/19 04 Hib/HBV 11/22/2003,03/01/2003,2002 IPV (Polio) 06/24/2007, 4,03/01/2003,2002 Influenza IIV4 (Quadrivalent ) 0.5mL (96602) 02/15/2022,01/14/2020,12/01/2018,2017,05/16/2017,11/29/2015,01/04/2015 Influenza LAIV (Nasal, 2-49 yrs) 01/07/2013 Influenza Vaccine (3+years) ([facility]) 03/23/2008,02/22/2005 MCV4 (Menactra) 07/16/2013 MCV4 Menveo [...] Department Care Team Description 05/16/2023 11:40 AM MEDICAL ASSISTANT CARDIOLOGY Appointment Specialty Center 401 Otolaryngology 401 [facility]. [place], [place] [phone] Suzanne Joshua MD [address] [place] [address] Health Maintenance Due Date Last Done Comments [...] history exists Medical Devices Implanted Type Area Data Center Engineer Device Identifier Shelf Expiration Date Model / Serial / Lot Bone Blck Tricort Lg - [id number] Implanted:Qty: 1 on 02/26/2021 by Dk Rocha DPM at [facility] BIOLOGIC Right: FOOT [employer] - [employer] 07/19/2025 [id number] / [id number] / Bone Chip Canc 15cc 18770 - [id number] Implanted:Qty: 1 on 02/26/2021 by Dk Rocha DPM at [facility] BIOLOGIC Right: FOOT [employer] - [employer] 07/19/2025 [id number] / [id number] / Plt Profyle Hand Lk 3-D 3x2h - [id number] Implanted:Qty: 1 on 02/26/2021 by Dk Rocha DPM at [facility] DEVICE Right: FOOT [employer] [id number] / / 1.7 X 14mm Variax 2 Non Locking Screw Implanted:Qty: 1 on 02/26/2021 by Dk Rocha DPM at [facility] DEVICE Right: FOOT [id number] / NA / NA Variax 2 Locking Screw Implanted:Qty: 2 on 02/26/2021 by Dk Rocha DPM at [facility] DEVICE Right: FOOT [id number] / / Variax 2 Locking Screw Implanted:Qty: 1 on 02/26/2021 by Dk Rocha DPM at [facility] DEVICE Right: FOOT [id number] / / Procedures Procedure Name Priority Date/Time Associated Diagnosis Comments AEROBIC CULTURE Routine 02/18/2023 11:58 AM MEDICAL ASSISTANT CARDIOLOGY Rhinorrhea from Last 3 Months Results * Aerobic Culture (02/18/2023 11:58 AM MEDICAL ASSISTANT CARDIOLOGY) Aerobic Culture Normal Babs; No Pathogens Present 02/23/2023 2:13 PM [facility] Gram Smear Rare PMN's Present 02/23/2023 2:13 PM [facility] Gram Smear No Organisms Seen 02/23/2023 2:13 PM [facility] Drainage NOSE AND NASOPHARYNX STRUCTURE / Unknown Non-blood Collection / Unknown 02/18/2023 11:58 AM MEDICAL ASSISTANT CARDIOLOGY 02/18/2023 4:32 PM MEDICAL ASSISTANT CARDIOLOGY Tracie M Fernanda FINK LAB_1 Performing Organization Address City/State/[facility] Co de Phone Number [address] [address], [facility] [place] [phone] from Last 3 Months Advance Directives Latest Code Status on File Code Status Date Activated Date Inactivated Comments Full Code 02/26/2021 6:23 AM 02/26/2021 2:20 PM Code Status History Code Status Date Activated Date Inactivated Comments Full Code 03/22/2019 11:22 AM 03/22/2019 4:08 PM Care Teams High School French Teacher Relationship Specialty Start Date End Date Scotty Mora MD [address] [place] [address] (work) PCP - General Internal Medicine 05/15/16
--- OUTSIDE RECORDS SUMMARY | 2023-04-18 22:27 | XMS_ITS | Encounter Summary ---
Author Name Unknown Organization [facility] Address [address], [place] [address] Care Team Providers Care Hand Brim Ironer Name Role Phone Scotty Mora MD Primary Care Provider [phone] Encounter Details Date Type Department Care Team Description 10/14/2022 2:40 PM CDT Lab Visit [facility] Laboratory [address] [place] [address] Allergy to eggs; Anaphylaxis, initial [...] Department Care Team Description 05/16/2023 11:40 AM OREMAN Appointment Specialty Center 401 Otolaryngology 401 [facility]. [place], [place] [phone] Suzanne Joshua MD [address] [place], [place] [phone] documented as of this encounter Procedures Procedure [...] <0.10 <0.10 kU/L 10/15/2022 12:59 AM CDT [facility] Comment:Class = 0 Blood Venipuncture / Unknown 10/14/2022 2:32 PM CDT 10/14/2022 2:32 PM CDT Narrative [facility] - 10/15/2022 12:59 AM CDT Clinical correlation is indicated for all class levels. Any diagnosis or treatment plan must be made by the clinician based on test results, individual history, the clinician's knowledge of the patient, as well as their clinical judgement. Maya Chance MD LAB_1 Performing Organization Address City/State/[facility] Co de Phone Number [facility] [address] [place] [address], [facility] [phone] * (ABNORMAL) IgE, Egg Components (10/14/2022 2:32 PM CDT) Egg White, IgE 13.40(H) <0.35 kU/L 10/15/2022 12:59 AM CDT [facility] Comment:Class = 3 Ovalbumin (GAL D2) 6.28(H) <0.10 kU/L 10/15/2022 12:59 AM CDT [facility] Ovomucoid (GAL D1) 1.53(H) <0.10 kU/L 10/15/2022 12:59 AM CDT [facility] Blood Venipuncture / Unknown 10/14/2022 2:32 PM CDT 10/14/2022 2:32 PM CDT Narrative [facility] [place] [facility] - 10/15/2022 12:59 AM CDT Clinical correlation is indicated for all class levels. Any diagnosis or treatment plan must be made by the clinician based on test results, individual history, the clinician's knowledge of the patient, as well as their clinical judgement. Maya Chance MD LAB_1 Performing Organization Address City/[facility]/ZIP Co de Phone Number [facility] [address] [phone] * Tryptase Total (10/14/2022 2:32 PM CDT) Tryptase Level 5.6 <=10.9 ug/L 10/16/2022 12:55 PM CDT [facility] Comment: Performed By: [facility] [address] [place] [address] Instrument Room Technician: Booker Anderson MD, PhD Blood Venipuncture / Unknown 10/14/2022 2:32 PM CDT 10/14/2022 2:32 PM CDT Maya Chance MD LAB_1 Performing Organization Address [facility] Co de Phone Number [facility] [address] [place], [place] [address] [place] [address] documented in this encounter Visit Diagnoses Diagnosis Allergy to eggs Anaphylaxis, initial encounter documented in this encounter Care Teams Hand Brim Ironer Relationship Specialty Start Date End Date Scotty Mora MD [address] [place] [address] PCP - General Internal Medicine 05/15/16 documented as of this encounter
--- OUTSIDE RECORDS SUMMARY | 2023-04-18 22:27 | XMS_ITS | Encounter Summary ---
Author Name Unknown Organization [facility] Address [address], [place] [address] Care Team Providers Care Transfer Specialist Name Role Phone Scotty Mora MD Primary Care Provider [phone] Encounter Details Date Type Department Care Team Description 10/14/2022 Orders Only [facility] Provider, [place] [address] Social History Tobacco Use Types Packs/Day Years [...] Department Care Team Description 05/16/2023 11:40 AM UNION ORGANISER Appointment Specialty Center 401 Otolaryngology 401 [facility] [place] [address] Suzanne Joshua MD [address] [place] [address] documented as of this encounter Procedures Procedure Name Priority Date/Time Associated Diagnosis Comments SPIROMETRY 10/14/2022 documented in this encounter Results * SPIROMETRY (10/14/2022) Interface Provider MD DUMMY/OTHER/AR documented in this encounter Visit Diagnoses Not on filedocumented in this encounter Care Teams Transfer Specialist Relationship Specialty Start Date End Date Scotty Mora MD [address] [place] [address] PCP - General Internal Medicine 05/15/16 documented as of this encounter
--- OUTSIDE RECORDS SUMMARY | 2023-04-18 22:27 | XMS_ITS | Encounter Summary ---
Author Name Unknown Organization [facility] Address [address] [address] Care Team Providers Care Medicare Compliance Auditor Name Role Phone Scotty Mora MD Primary Care Provider [phone] Reason for Referral * Consult/Transfer Care (Routine) - New Request Specialty Diagnoses / Procedures Referred By Contac t Referred To Contact Diagnoses TMJ (temporomandibular joint disorder) Tracie Michael PA-C [address] [place] [address] Referral ID Status Reason Start Date Expiration Date V isits Requested Visits Authorized [id number] New Request 01/03/2023 04/03/2024 1 1 Scheduling Instructions Your clinician has recommended an appointment with [facility]. You may call [phone] to schedule your appointment. We suggest you [...] W IV Cont Tracie Michael PA-C [address] [place] [address] Referral ID Status Reason Start Date Expiration Date V isits Requested Visits Authorized [id number] Incomplete 01/03/2023 04/03/2024 1 1 Reason for Visit * Reason Comments Consult, New Patient Left jaw pain when opening mouth and chewing on and off for 4 months. Left cheek swelling. Patient states clogged sinuses and Flonase does not work. Encounter Details Date Type Department Care Team Description 01/03/2023 7:45 AM CDT Office Visit Specialty Center 401 Otolaryngology 401 [facility] [place] [address] Tracie Michael PA-C [address] [place], [place] [phone] TMJ (temporomandibular joint disorder) (Primary Dx); Bilateral [...] issues. Due to language barrier, a Tigriny[employer] nuclear technician was present during the history-taking and subsequent discussion and for the physical exam with this patient. Left sided jaw pain has been on and off for 3-4 months, and more persistent last few week. Worse when she is eating and opening her jaw. Pain is morales in nature. Mother believes the left side of cosme looks larger. Hx of braces [id number], continues wearing retainers. Denies popping or clicking [...] negative. Past Medical History: Diagnosis Date Asthma ([facility]) No past surgical history on [...] Department Care Team Description 05/16/2023 11:40 AM AUTOMOTIVE SPECIALTY TECHNICIAN Appointment Specialty Center [address] [place] [address]. [place] [address] Suzanne Joshua MD [address] [place] [address] Scheduled Referrals Name Type Priority Associated Diagnoses [...] and subcutaneous soft tissues. Normal oral cavity, inside sales specialist spaces, and floor of mouth structures. [...] space andsubcutaneous soft tissues. Normal oral cavity, inside sales specialist spaces, andfloor of mouth structures. LYMPH [...] unspecified documented in this encounter Care Teams Medicare Compliance Auditor Relationship Specialty Start Date End Date Scotty Mora MD [address] [place] [address] PCP - General Internal Medicine 05/15/16 documented as of this encounter
--- OUTSIDE RECORDS SUMMARY | 2023-04-18 22:27 | XMS_ITS | Encounter Summary ---
Author Name Unknown Organization [facility] Address [address] [place] [address] Care Team Providers Care Sleeve Tailor Name Role Phone Scotty Mora MD Primary Care Provider [phone] Encounter Details Date Type Department Care Team Description 10/31/2022 Telephone Specialty Center 401 Allergy Clinic 401 [facility] [place] [address] Maya Dowling MD [address] [place] [address] Social History Tobacco Use Types Packs/Day [...] PM CDT Unable to reach patient. Sent Favbuy message with information from Dr Chance. PETE [...] Department Care Team Description 05/16/2023 11:40 AM EXPRESSIVE ART THERAPIST Appointment [facility] [address] [place] [address]. [place], [place] [phone] Suzanne Joshua MD [address] [place], [place] [phone] documented as of this encounter Visit Diagnoses Not on filedocumented in this encounter Care Teams Sleeve Tailor Relationship Specialty Start Date End Date Scotty Mora MD [address] [place] [address] PCP - General Internal Medicine 05/15/16 documented as of this encounter
--- OUTSIDE RECORDS SUMMARY | 2023-04-18 22:27 | XMS_ITS | Encounter Summary ---
Author Name Unknown Organization [facility] Address [address] [place] [address] Care Team Providers Care Learning Analyst Name Role Phone Scotty Mora MD Primary Care Provider [phone] Reason for Referral * Consult/Transfer Care (Routine) - New Request Specialty Diagnoses / Procedures Referred By García ross Referred To Contact Diagnoses Social anxiety in childhood (HRC) Scotty Mora MD [address] [place] [address] Referral ID Status Reason Start Date Expiration Date V isits Requested Visits Authorized [id number] New Request 03/05/2023 06/03/2024 1 1 Scheduling Instructions Your clinician has recommended an appointment with Behavioral Health. You may call [phone] to schedule your appointment. This recommended service/s [...] agrees to this order: Confirmed with patient FIXER Reason for Visit * Reason Comments REFERRAL REQUEST Entered automaticall y based on patient selection in [facility]. Encounter Details Date Type Department Care Team Description 02/27/2023 10:20 PM TIRE FIXER E-Visit [facility] [address] [place] [address] Scotty Mora MD [address] [place] [address] Dx: Social anxiety in childhood (HRC) (Primary [...] Department Care Team Description 05/16/2023 11:40 AM TIRE FIXER Appointment Specialty Center 401 Otolaryngology 401 [facility]. 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
--- OUTSIDE RECORDS SUMMARY | 2023-04-18 22:27 | XMS_ITS | Encounter Summary ---
Author Name Unknown Organization [facility] Address [address] [place] [address] Care Team Providers Care Chute Tapper Name Role Phone Scotty Mora MD Primary Care Provider [phone] Reason for Visit * Reason Comments Revisit Patient is here for follow up, she was given nasal spray and stopped it. She felt it was not helping. Does not take any allergy medication. Encounter Details Date Type Department Care Team Description 02/18/2023 11:15 AM SHOPFITTER Office Visit Specialty Center 401 Otolaryngology 401 [facility] [place], [place] [address] Tracie Michael PA-C [address] [place] [address] DNS (deviated nasal septum) (Primary Dx); [...] and allergic rhinitis. Dueto language barrier, a [email or web address] rehabilitation services coordinator was present during the history-taking and subsequent [...] and subcutaneous soft tissues. Normal oral cavity, patient financial services coordinator spaces, and floor of mouth structures. LYMPH [...] ICD-10-CM 1. DNS (deviated nasal septum) J34.2 22526 Nasopharyngoscopy With Endoscope CANCELED: Nasal Endo Dx Uni/Max Sep Proc (17068) 2. Seasonal allergic rhinitis due to pollen J30.1 flunisolide (NASAREL) 25 MCG/ACT (0.025%) nasal solution 78279 Nasopharyngoscopy With Endoscope CANCELED: Nasal Endo Dx Uni/Max Sep Proc (61807) 3. Hypertrophy of nasal turbinates J34.3 flunisolide (NASAREL) 25 MCG/ACT (0.025%) nasal solution 28387 Nasopharyngoscopy With Endoscope CANCELED: Nasal Endo Dx Uni/Max Sep Proc (06728) 4. Rhinorrhea J34.89 Aerobic Culture 77482 Nasopharyngoscopy With Endoscope CANCELED: Nasal Endo Dx Uni/Max Sep Proc (78932) 5. Nasal obstruction J34.89 57576 Nasopharyngoscopy With Endoscope CANCELED: Nasal Endo Dx Uni/Max Sep Proc (18657) PLAN Patient with chronic nasal obstruction due [...] 02/18/2023, 12:08 PM Billing based on: Complexity FITTER documented in this encounter Plan of Treatment Upcoming Encounters Date Type Department Care Team Description 05/16/2023 11:40 AM SHOPFITTER Appointment Specialty Center [address] [place] [address]. [place], [place] [phone] Suzanne Joshua MD [address] [place] [phone] documented as of this encounter Procedures Procedure Name Priority Date/Time Associated Diagnosis Comments AEROBIC CULTURE Routine 02/18/2023 11:58 AM SHOPFITTER Rhinorrhea documented in this encounter Results * Aerobic Culture (02/18/2023 11:58 AM SHOPFITTER) Aerobic Culture Normal Babs; No Pathogens Present 02/23/2023 2:[address] [facility] Gram Smear Rare PMN's Present 02/23/2023 2:[address] [facility] Gram Smear No Organisms Seen 02/23/2023 2:[address] [facility] Drainage NOSE AND NASOPHARYNX STRUCTURE / Unknown Non-blood Collection / Unknown 02/18/2023 11:58 AM SHOPFITTER 02/18/2023 4:32 PM SHOPFITTER Tracie Michael PA-C LAB_[address] [phone] documented in this encounter Visit Diagnoses Diagnosis DNS (deviated nasal septum)- Primary Deviated nasal septum Seasonal allergic rhinitis due to pollen Hypertrophy of nasal turbinates Rhinorrhea Other diseases of nasal cavity and sinuses Nasal obstruction Other diseases of nasal cavity and sinuses documented in this encounter Care Teams Chute Tapper Relationship Specialty Start Date End Date Scotty Mora MD [address] [place] [address] PCP - General Internal Medicine 05/15/16 documented as of this encounter
--- OUTSIDE RECORDS SUMMARY | 2023-04-18 22:28 | XMS_ITS | Encounter Summary ---
Author Name Unknown Organization [facility] Address [address], [place] [address] Care Team Providers Care Director Digital Strategy Name Role Phone Scotty Mora MD Primary Care Provider [phone] Reason for Visit * Procedure/Equipment (Routine) - Incomplete Specialty Diagnoses / Procedures Referred By García ross Referred To Contact Procedures XR Chest 2 Views Jeovany Marino, DO [address] [place] [address] Referral ID Status Reason Start Date Expiration Date V isits Requested Visits Authorized [id number] Incomplete 09/09/2022 12/09/2023 1 1 Encounter Details Date Type Department Care Team Description 09/09/2022 9:20 PM CDT Ancillary Procedure [facility] [address] [place] [address] Social History Tobacco Use Types [...] Department Care Team Description 05/16/2023 11:40 AM SIGNAL ENGINEER Appointment Specialty Center [address] [place] [address] Suzanne Joshua MD [address] [place] [address] documented as of this encounter Procedures Procedure Name Priority Date/Time Associated Diagnosis Comments XR CHEST 2 VIEWS STAT 09/09/2022 9:38 PM CDT documented in this encounter Results * XR Chest 2 Views (09/09/2022 9:38 PM CDT) Anatomical Region Laterality Modality Chest, Lung Computed Radiogr aphy 09/09/2022 9:38 PM CDT Narrative 09/09/2022 9:42 PM CDT EXAM: XR CHEST 2 VIEWS LOCATION: [facility] DATE: 09/09/2022 INDICATION: Chest pain, SOB COMPARISON: X-ray 12/21/2013 IMPRESSION: Negative chest. ??The lungs are clear and there are no pleural effusions. Normal heart size. Procedure Note Bishnu Borja MD - 09/09/2022 EXAM: XR CHEST 2 VIEWS LOCATION: [facility] DATE: 09/09/2022 INDICATION: Chest pain, SOB COMPARISON: X-ray 12/21/2013 IMPRESSION: Negative chest. The lungs are clear and there are no pleuraleffusions. Normal heart size. Jeovany CALDERON GD documented in this encounter Visit Diagnoses Not on filedocumented in this encounter Care Teams Director Digital Strategy Relationship Specialty Start Date End Date Scotty Mora MD [address] [place] [address] PCP - General Internal Medicine 05/15/16 documented as of this encounter
--- OUTSIDE RECORDS SUMMARY | 2023-04-18 22:28 | XMS_ITS | Encounter Summary ---
Author Name Unknown Organization [facility] Address [address] [place] [address] Care Team Providers Care Purchasing Specialist Name Role Phone Scotty Mora MD Primary Care Provider [phone] Encounter Details Date Type Department Care Team Description 11/23/2011 Correspondence [facility] [address] [place] [address]. [place] [address] Ramana Stanley MD [address] [place] [address] REQUEST TO ADMIN MEDICATION AT SCHOOL [...] Department Care Team Description 05/16/2023 11:40 AM NURSE CLINICAL Appointment Specialty Center 401 Otolaryngology 401 [facility] [place] [address] Suzanne Joshua MD [address] [place] [address] documented as of this encounter Visit Diagnoses Not on filedocumented in this encounter Additional Health Concerns Infection Onset Date Last Indicated Resolved Time R/O COVID19 11/05/2019 11/05/2019 11/05/2019 6:50 PM CDT COVID19 11/05/2019 11/05/2019 11/26/2019 3:17 AM CDT documented as of this encounter Care Teams Purchasing Specialist Relationship Specialty Start Date End Date Scotty Mora MD [address] [place] [address] PCP - General Internal Medicine 05/15/16 documented as of this encounter
--- OUTSIDE RECORDS SUMMARY | 2023-04-18 22:28 | XMS_ITS | Encounter Summary ---
Author Name Unknown Organization [facility] Address [address] [place] [address] Care Team Providers Care Popcorn Machine Operator Name Role Phone Scotty Mora MD Primary Care Provider [phone] Encounter Details Date Type Department Care Team Description 11/14/2011 Correspondence [facility] 401 Allergy Clinic 401 [facility] [place] [address] Ramana Stanley MD [address] [place] [address] ANAPHYLAXIS ACTION PLAN Social History Tobacco [...] Department Care Team Description 05/16/2023 11:40 AM COMPUTER REPAIR TECHNICIAN Appointment Specialty [facility] 401 Otolaryngology 401 [facility]. [place], [place] [phone] Suzanne Joshua MD [address] [place] [address] documented as of this encounter Visit Diagnoses Not on filedocumented in this encounter Additional Health Concerns Infection Onset Date Last Indicated Resolved Time R/O COVID19 11/05/2019 11/05/2019 11/05/2019 6:50 PM CDT COVID19 11/05/2019 11/05/2019 11/26/2019 3:17 AM CDT documented as of this encounter Care Teams Popcorn Machine Operator Relationship Specialty Start Date End Date Scotty Mora MD [address] [place] [address] PCP - General Internal Medicine 05/15/16 documented as of this encounter
--- OUTSIDE RECORDS SUMMARY | 2023-04-18 22:28 | XMS_ITS | Encounter Summary ---
Author Name Unknown Organization [facility] Address [address] [place] [address] Care Team Providers Care Right Of Way Worker Name Role Phone Scotty Mora MD Primary Care Provider [phone] Reason for Visit * Reason Comments CHEST PAIN Encounter Details Date Type Department Care Team Description 05/17/2022 6:20 PM DOUGHNUT GLAZIER Office Visit [facility] [address] [place] [address] Torito Vázquez MD [facility] [place], [place] [phone] Low ferritin (Primary Dx); Dizziness; Nonspecific chest [...] Comments Blood Pressure 107/75 05/17/2022 6:23 PM DOUGHNUT GLAZIER Pulse 100 05/17/2022 6:23 PM DOUGHNUT GLAZIER Temperature 36.7 ??C (98.1 ??F) 05/17/2022 6:23 PM CS T Respiratory Rate 16 05/17/2022 6:23 PM DOUGHNUT GLAZIER Oxygen Saturation 100% 05/17/2022 6:23 PM DOUGHNUT GLAZIER Inhaled Oxygen Concentration - - Weight - [...] plan. This note was created using the fitogram dictating software and therefore should be read withthe understanding of the potential for subtle errors in sports commentator.there may be unintended Substitution of words in the dictation Torito Vázquez MD HNUT GLAZIER documented in this encounter Nursing Notes * [...] during the chest pain. Sandra Sarmiento CMA HNUT GLAZIER documented in this encounter Plan of Treatment Upcoming Encounters Date Type Department Care Team Description 05/16/2023 11:40 AM DOUGHNUT GLAZIER Appointment Specialty Center 401 Otolaryngology 401 [facility] [place] [address] Suzanne Joshua MD 401 [place] [address] documented as of this encounter Results * Basic Metabolic Panel (05/17/2022 7:22 PM DOUGHNUT GLAZIER) Sodium 139 136 - 145 mmol/L 05/17/2022 8:[address] [facility] Potassium 3.6 3.5 - 5.1 mmol/L 05/17/2022 8:[address] [facility] Chloride 105 98 - 109 mmol/L 05/17/2022 8:[address] [facility] CO2 26 20 - 29 mmol/L 05/17/2022 8:[address] [facility] Anion Gap 8 7 - 16 mmol/L 05/17/2022 8:[address] [facility] Calcium 9.3 8.4 - 10.4 mg/dL 05/17/2022 8:[address] [facility] BUN 14 7 - 26 mg/dL 05/17/2022 8:[address] [facility] Creatinine 0.65 0.55 - 1.02 mg/dL 05/17/2022 8:[address] [facility] Glucose 82 70 - 100 mg/dL 05/17/2022 8:[address] [facility] Comment:The given reference range is for the fasting state. Non-fasting reference range for glucose is 70 - 180 mg/dL. Hours Fasting 8 05/17/2022 8:24 PM [facility] GFR, Estimated >60 >60 mL/min/1.7 3m2 05/17/2022 8:[address] [facility] Blood Venipuncture / Unknown 05/17/2022 7:22 PM DOUGHNUT GLAZIER 05/17/2022 7:23 PM [facility] Torito Vázquez MD LAB_[address] [address], [facility] [phone] [facility] [address] [place] [address], [facility] [phone] * Ferritin (05/17/2022 7:22 PM DOUGHNUT GLAZIER) Pathologist [facility] Ferritin 9 9 - 204 ng/mL 05/17/2022 8:[address] [facility] Blood Venipuncture / Unknown 05/17/2022 7:22 PM DOUGHNUT GLAZIER 05/17/2022 7:23 PM DOUGHNUT GLAZIER Torito Vázquez MD LAB_1 Performing Organization Address [facility]/ZIP [place] [address], [facility] [phone] * Iron Profile (Iron,TIBC,%Sat.(Calc)) (05/17/2022 7:22 PM DOUGHNUT GLAZIER) [facility] Iron 111 50 - 170 mcg/dL 05/17/2022 8:[address] [facility] Transferrin 324 180 - 382 mg/dL 05/17/2022 8:[address] [facility] TIBC, Calculated 405 240 - 450 mcg/dL 05/17/2022 8:[address] [facility] % Saturation, Calculated 27 10 - 50 % 05/17/2022 8:[address] [facility] Blood Venipuncture / Unknown 05/17/2022 7:22 PM DOUGHNUT GLAZIER 05/17/2022 7:23 PM DOUGHNUT GLAZIER Torito Vázquez MD LAB_1 Performing Organization Address [facility] [place] [address], [facility] [phone] * (ABNORMAL) Complete Blood Count-No Diff (05/17/2022 7:22 PM DOUGHNUT GLAZIER) WBC 6.6 3.5 - 10.5 x10(9)/L 05/17/2022 7:33 PM [facility] RBC 3.87(L) 3.90 - 5.03 x10(12)/L 05/17/2022 7:33 PM [facility] Hemoglobin 11.8(L) 12.0 - 15.5 g/dL 05/17/2022 7:33 PM [facility] HCT 35.8 34.9 - 44.5 % 05/17/2022 7:33 PM [facility] MCV 92.5 80.0 - 100.0 fL 05/17/2022 7:33 PM [facility] MCH 30.5 27.6 - 33.3 pg 05/17/2022 7:33 PM [facility] MCHC 33.0 31.5 - 35.2 g/dL 05/17/2022 7:33 PM [facility] RDW 13.1 11.9 - 15.5 % 05/17/2022 7:33 PM [facility] Platelets 215 150 - 450 x10(9)/L 05/17/2022 7:33 PM [facility] Blood Venipuncture / Unknown 05/17/2022 7:22 PM DOUGHNUT GLAZIER 05/17/2022 7:23 PM [facility] Torito Vázquez MD LAB_1 [place] [address] [phone] documented in this encounter Visit Diagnoses Diagnosis Low ferritin- Primary Other nonspecific findings on examination of blood Dizziness Dizziness and giddiness Nonspecific chest pain documented in this encounter Care Teams Right Of Way Worker Relationship Specialty Start Date End Date Scotty Mora MD [address] [place] [address] PCP - General Internal Medicine 05/15/16 documented as of this encounter
--- OUTSIDE RECORDS SUMMARY | 2023-04-18 22:28 | XMS_ITS | Encounter Summary ---
Author Name Unknown Organization [facility] Address [address] [address] Care Team Providers Care Guitar Teacher Name Role Phone Scotty Mora MD Primary Care Provider [phone] Encounter Details Date Type Department Care Team Description 09/16/2011 Correspondence [facility] to [facility] External, [place] [address] IMMUNIZATION RECORD Social History Tobacco Use Types [...] Department Care Team Description 05/16/2023 11:40 AM MORTGAGE MANAGER Appointment Specialty Center [address] [place] [address]. [place] [address] Suzanne Joshua MD 401 [place], [place] [phone] documented as of this encounter Visit Diagnoses Not on filedocumented in this encounter Additional Health Concerns Infection Onset Date Last Indicated Resolved Time R/O COVID19 11/05/2019 11/05/2019 11/05/2019 6:50 PM CDT COVID19 11/05/2019 11/05/2019 11/26/2019 3:17 AM CDT documented as of this encounter Care Teams Guitar Teacher Relationship Specialty Start Date End Date Scotty Mora MD [address] [place] [address] PCP - General Internal Medicine 05/15/16 documented as of this encounter
--- OUTSIDE RECORDS SUMMARY | 2023-04-18 22:28 | XMS_ITS | Encounter Summary ---
Author Name Unknown Organization [facility] Address [address], [place] [address] Care Team Providers Care Customer Service Specialist Name Role Phone Scotty Mora MD Primary Care Provider [phone] Reason for Visit * Reason Comments CONSULT Allergies/Asthma * Consult/Transfer Care (Routine) - New Request Specialty Diagnoses / Procedures Referred By Contac t Referred To Contact Diagnoses Allergic rhinitis, unspecified seasonality, unspecified trigger Pedro Menard, ANIMAL LABORATORY HELPER, DNP [address] [place] [address] Referral ID Status Reason Start Date Expiration Date V isits Requested Visits Authorized [id number] New Request 02/15/2022 05/17/2023 1 1 Encounter Details Date Type Department Care Team Description 10/14/2022 1:15 PM CDT Office Visit [facility] [address] [place] [address]. [place] [address] Maya Dowling MD 401 [place] [address] Breathing Test, Hs Allergy Allergy [...] 2.35 2.35 FEV1 % 75 66 FEV1/FVC [id number] 89.02 ACT Adult Total 20 25 21 [...] Department Care Team Description 05/16/2023 11:40 AM GINNING OPERATOR Appointment Specialty Center 401 Otolaryngology 401 [facility]. [place], [place] [phone] Suzanne Joshua MD [address] [place] [address] Scheduled Orders Name Type Priority Associated Diagnoses Orde r Schedule Tryptase Total Lab Routine Allergy to eggs Anaphylaxis, initial encounter Expected: 10/28/2022 (Approximate), Expires: 04/16/2024 documented as of this encounter Results * Alpha-Galactose, IgE (10/14/2022 2:32 PM CDT) IgE Alpha Galactose <0.10 <0.10 kU/L 10/15/2022 12:59 AM CDT [facility] Comment:Class = 0 Blood Venipuncture / Unknown 10/14/2022 2:32 PM CDT 10/14/2022 2:32 PM CDT Narrative [facility] - 10/15/2022 12:59 AM CDT Clinical correlation is indicated for all class levels. Any diagnosis or treatment plan must be made by the clinician based on test results, individual history, the clinician's knowledge of the patient, as well as their clinical judgement. Maya Chance MD LAB_1 [facility] [address] [phone] * (ABNORMAL) IgE, Egg Components (10/14/2022 2:32 PM CDT) Egg White, IgE 13.40(H) <0.35 kU/L 10/15/2022 12:59 AM CDT [facility] Comment:Class = 3 Ovalbumin (GAL D2) 6.28(H) <0.10 kU/L 10/15/2022 12:59 AM CDT [facility] Ovomucoid (GAL D1) 1.53(H) <0.10 kU/L 10/15/2022 12:59 AM CDT [facility] Blood Venipuncture / Unknown 10/14/2022 2:32 PM CDT 10/14/2022 2:32 PM CDT Narrative [facility] - 10/15/2022 12:59 AM CDT Clinical correlation is indicated for all class levels. Any diagnosis or treatment plan must be made by the clinician based on test results, individual history, the clinician's knowledge of the patient, as well as their clinical judgement. Maya Chance MD LAB_1 Performing Organization Address [facility]/ZIP Co de Phone Number [facility] [address] [phone] * Tryptase Total (10/14/2022 2:32 PM CDT) Tryptase Level 5.6 <=10.9 ug/L 10/16/2022 12:55 PM CDT [id number] Comment: Performed By: [employer] [address] [place] [address] Burglar Alarm Installer: Booker Anderson MD, PhD Blood Venipuncture / Unknown 10/14/2022 2:32 PM CDT 10/14/2022 2:32 PM CDT Maya Chance MD LAB_1 Performing Organization Address [facility]/ZIP Co de Phone Number [id number] [address] [place], [place] [id number] [place] [address] documented in this encounter Visit Diagnoses Diagnosis Allergy to eggs- Primary Anaphylaxis, initial encounter documented in this encounter Care Teams Customer Service Specialist Relationship Specialty Start Date End Date Scotty Mora MD [address] [place] [address] PCP - General Internal Medicine 05/15/16 documented as of this encounter
--- OUTSIDE RECORDS SUMMARY | 2023-04-18 22:28 | XMS_ITS | Encounter Summary ---
Author Name Unknown Organization [facility] Address [address], [place] [address] Care Team Providers Care Rn Field Case Manager Name Role Phone Scotty Mora MD Primary Care Provider [phone] Encounter Details Date Type Department Care Team Description 09/16/2011 Correspondence External to [facility] External, [place] [address] IMMUNIZATION RECORD Social History Tobacco Use Types [...] Department Care Team Description 05/16/2023 11:40 AM INVESTMENT SALES ASSISTANT Appointment Specialty Center [address] [place] [address]. [place] [address] Suzanne Joshua MD [address] [place], [place] [phone] documented as of this encounter Visit Diagnoses Not on filedocumented in this encounter Additional Health Concerns Infection Onset Date Last Indicated Resolved Time R/O COVID19 11/05/2019 11/05/2019 11/05/2019 6:50 PM CDT COVID19 11/05/2019 11/05/2019 11/26/2019 3:17 AM CDT documented as of this encounter Care Teams Rn Field Case Manager Relationship Specialty Start Date End Date Scotty Mora MD [address] [place] [address] PCP - General Internal Medicine 05/15/16 documented as of this encounter
--- OUTSIDE RECORDS SUMMARY | 2023-04-18 22:28 | XMS_ITS | Encounter Summary ---
Author Name Unknown Organization [facility] Address [address], [place] [address] Care Team Providers Care Band Aid Machine Operator Name Role Phone Scotty Mora MD Primary Care Provider [phone] Encounter Details Date Type Department Care Team [...] Department Care Team Description 05/16/2023 11:40 AM REGULATORY ASSISTANT Appointment Specialty Center 401 Otolaryngology 401 [facility] [address] Suzanne Joshua MD [address] [place] [address] documented as of this encounter Visit Diagnoses Not on filedocumented in this encounter Additional Health Concerns Infection Onset Date Last Indicated Resolved Time R/O COVID19 11/05/2019 11/05/2019 11/05/2019 6:50 PM CDT COVID19 11/05/2019 11/05/2019 11/26/2019 3:17 AM CDT documented as of this encounter Care Teams Band Aid Machine Operator Relationship Specialty Start Date End Date Scotty Mora MD [address] [place] [address] PCP - General Internal Medicine 05/15/16 documented as of this encounter
--- OUTSIDE RECORDS SUMMARY | 2023-04-18 22:28 | XMS_ITS | Encounter Summary ---
Author Name Unknown Organization [facility] Address [address], [place] [address] Care Team Providers Care Counter Former Name Role Phone Scotty Mora MD Primary Care Provider [phone] Reason for Referral * Consult/Transfer Care (Routine) - Closed Specialty Diagnoses / Procedures Referred By García ross Referred To Contact Diagnoses Atypical chest pain Mike Crowley MD [address] [place] [address] Referral ID Status Reason Start Date Expiration Date Visits Re quested Visits Authorized [id number] Closed 09/09/2022 12/08/2022 1 1 Scheduling Instructions Your clinician has recommended an appointment with [facility] for your ongoing patient care. You can quickly make your appointment online at [employer]/[email or web address]. You can also call [phone] for help scheduling your appointment. We suggest [...] Chest 2 Views Jeovany Marino DO [address] [place] [address] Referral ID Status Reason Start Date Expiration Date V isits Requested Visits Authorized [id number] Incomplete 09/09/2022 12/09/2023 1 1 Reason for Visit * Reason Comments Chest Pain Encounter Details Date Type Department Care Team Description 09/09/2022 10:18 PM CDT - 09/09/2022 11:12 PM CDT [facility] [address] [place], [place] [phone] Mike Crowley MD [address] [place], [place] [phone] Atypical chest pain (Primary Dx) Discharge Disposition: [...] CONSULT TO CASE MANAGEMENT AFTER HOURS DISCHARGE Parts Sales Advisor Note: ED CM asked to assist with primary care referral. Patient was seen in [facility] on 09/09/22 for sharp shooting pain in the left anterior portion of the chest. Reviewed chart. Insurance [facility] self insured Primary care physician Scotty Mora at [facility] Specialty care providers: NA ED CM attempted to reach patient with [facility]. No answer left vm requesting a call back. ED CM will tryto reach patient again X2. Ashley Lundy RN-[facility] linting machine operator documented in this encounter ED Notes * Noa Lewis RN - 09/09/2022 11:12 PM CDT Parts Sales Advisor Note: ED CM asked to assist with [...] @ 3:30 pm With Scotty Mora at [facility]. Call back to patient and provided clinic appointment details. Left VM with return call back number No other ED CM needs identified. Noa Lewis RN, BSN linting machine operator * Noa Treviño RN - 09/09/2022 11:11 PM CDT [facility] ED Nursing Discharge Note Arrival [...] Quach MD - 09/09/2022 11:08 PM CDT [facility] Emergency Medicine Visit Note Chief [...] visit, and supervised patient care with the health clinician. MDM: chest pain. EKG, CXR. Home [MM] ED Course User Index [MM] Mike Crowley MD Clinical Impressions as of 09/09/222307 Atypical chest pain documented in this encounter Plan of Treatment Upcoming Encounters Date Type Department Care Team Description 05/16/2023 11:40 AM CLOTH BOOKER Appointment Specialty Center [address] [place] [address]. [place] [address] Suzanne Joshua MD [address] [place] [address] Scheduled Referrals Name Type Priority Associated Diagnoses Orde r Schedule Establish Primary Care Referral Routine Atypical chest pain Ordered: 09/09/2022 documented as of this encounter Procedures Procedure Name Priority Date/Time Associated Diagnosis Comments [id number] ELECTROCARDIOGRAM TRACING STAT 09/09/2022 10:21 PM CDT [...] [facility] QTc 452 ms [facility]USE [facility] P [place] 55 degrees MUSE [facility] R [place] 74 degrees MUSE [facility] T [place] 57 degrees MUSE [facility] 09/09/2022 10:2 1 PM CDT Narrative MUSE [facility] - 09/10/2022 8:59 AM CDT Sinus rhythm Normal ECG No previous ECGs available Confirmed by Jacek Arguello ([id number]) on 09/10/2022 8:59:02 AM Procedure Note Jacek Arguello MD - 09/10/2022 Sinus rhythm Normal ECG No previous ECGs available Confirmed by Jacek Arguello ([id number]) on 09/10/2022 8:59:02 AM Jeovany Marino DO EKG Performing Organization Address City/State/[facility] Co de Phone Number [facility] [address] [place] [address] * XR Chest 2 Views (09/09/2022 9:38 PM CDT) Anatomical Region Laterality Modality Chest, Lung Computed Radiogr aphy 09/09/2022 9:38 PM CDT Narrative 09/09/2022 9:42 PM CDT EXAM: XR CHEST 2 VIEWS LOCATION: [facility] DATE: 09/09/2022 INDICATION: Chest pain, SOB COMPARISON: X-ray 12/21/2013 IMPRESSION: Negative chest. ??The lungs are clear and there are no pleural effusions. Normal heart size. Procedure Note Bishnu Borja MD - 09/09/2022 EXAM: XR CHEST 2 VIEWS LOCATION: [facility] DATE: 09/09/2022 INDICATION: Chest [...] on documented in this encounter Care Teams Counter Former Relationship Specialty Start Date End Date Scotty Mora MD [address] [place] [address] PCP - General Internal Medicine 05/15/16 documented as of this encounter
--- OUTSIDE RECORDS SUMMARY | 2023-04-18 22:28 | XMS_ITS | Encounter Summary ---
Author Name Unknown Organization [facility] Address [address] [place] [address] Care Team Providers Care Group Fitness Instructor Name Role Phone Scotty Mora MD Primary Care Provider [phone] Reason for Visit * Reason Comments CHEST PAIN Encounter Details Date Type Department Care Team Description 09/09/2022 Nurse Triage Careline [address] [facility] [place], [place] [address] Scotty Mora MD [address] [place], [place] [phone] CHEST PAIN Social History Tobacco Use Types [...] only a few seconds.) Protocols used: Chest Aqif-CISTS-YH Plan: Go to ED now. Pt agrees with plan, no further questions. Advised patient/caller to call back CareLine if there are further questions or concerns or to be seen if situation becomes emergent. The CareLine is available 21/10. Paula Nielsen RN Careline 6:24 PM 09/09/2022 documented in this encounter Plan of Treatment Upcoming Encounters Date Type Department Care Team Description 05/16/2023 11:40 AM ANTISQUEAK CHALKER Appointment Specialty Center [address] [place] [address]. [place], [place] [phone] Suzanne Joshua MD [address] [place] [address] documented as of this encounter Visit Diagnoses Not on filedocumented in this encounter Care Teams Group Fitness Instructor Relationship Specialty Start Date End Date Scotty Mora MD [address] [place] [address] PCP - General Internal Medicine 05/15/16 documented as of this encounter
--- OUTSIDE RECORDS SUMMARY | 2023-04-18 22:28 | XMS_ITS | Encounter Summary ---
Author Name Unknown Organization [facility] Address [address], [place] [address] Care Team Providers Care Dairy Frozen Manager Name Role Phone Scotty Mora MD Primary Care Provider [phone] Encounter Details Date Type Department Care Team Description 12/13/2013 Correspondence [facility] [address] [facility] [place] [address] Madiha Patiño MD [address] [place] [address] PROOF OF DELIVERY Social History [...] Department Care Team Description 05/16/2023 11:40 AM DISTRIBUTION CENTER ADMINISTRATOR Appointment Specialty Center 401 Otolaryngology 401 [facility] [place] [address] Suzanne Joshua MD [address] [place] [place] [address] documented as of this encounter Visit Diagnoses Not on filedocumented in this encounter Additional Health Concerns Infection Onset Date Last Indicated Resolved Time R/O COVID19 11/05/2019 11/05/2019 11/05/2019 6:50 PM CDT COVID19 11/05/2019 11/05/2019 11/26/2019 3:17 AM CDT documented as of this encounter Care Teams Dairy Frozen Manager Relationship Specialty Start Date End Date Scotty Mora MD [address] [place] [address] PCP - General Internal Medicine 05/15/16 documented as of this encounter
--- OUTSIDE RECORDS SUMMARY | 2023-04-18 22:28 | XMS_ITS | Encounter Summary ---
Author Name Unknown Organization [facility] Address [address], [place] [address] Care Team Providers Care Vp Of Product Name Role Phone Scotty Mora MD Primary Care Provider [phone] Reason for Visit * Reason Comments LAB RESULTS Encounter Details Date Type Department Care Team Description 06/20/2022 Telephone [facility] [address] [place] [address] Scotty Mora MD [address] [place] [address] LAB RESULTS Social History Tobacco [...] answer. Message left to return call to [phone]. Will attempt to return call at later [...] with primary provider on this. Kate Hanna, CONCRETE MIXER TRUCK DRIVER, DNP 05/18/2022, 11:35 AM Marimar Verdugo RN [...] Department Care Team Description 05/16/2023 11:40 AM SUPERVISOR QUILTING Appointment Specialty Center [address] [place] [address]. [place], [place] [phone] Suzanne Joshua MD [address] [place], [place] [phone] documented as of this encounter Visit Diagnoses Not on filedocumented in this encounter Care Teams Vp Of Product Relationship Specialty Start Date End Date Scotty Mora MD [address] [place] [phone] PCP - General Internal Medicine 05/15/16 documented as of this encounter
--- OUTSIDE RECORDS SUMMARY | 2023-04-18 22:28 | XMS_ITS | Encounter Summary ---
Author Name Unknown Organization [facility] Address [address], [place] [address] Care Team Providers Care Tar Boiler Name Role Phone Scotty Mora MD Primary Care Provider [phone] Encounter Details Date Type Department Care Team Description 09/17/2011 Correspondence External to [facility] External, [place] [address] IMMUNIZATION RECORD Social History Tobacco Use Types [...] Department Care Team Description 05/16/2023 11:40 AM ELECTRONIC COMMERCE SPECIALIST Appointment [facility] [address] [place] [address]. [place] [address] Suzanne Joshua MD [address] [place], [place] [phone] documented as of this encounter Visit Diagnoses Not on filedocumented in this encounter Additional Health Concerns Infection Onset Date Last Indicated Resolved Time R/O COVID19 11/05/2019 11/05/2019 11/05/2019 6:50 PM CDT COVID19 11/05/2019 11/05/2019 11/26/2019 3:17 AM CDT documented as of this encounter Care Teams Tar Boiler Relationship Specialty Start Date End Date Scotty Mora MD [address] [place] [address] PCP - General Internal Medicine 05/15/16 documented as of this encounter
--- OUTSIDE RECORDS SUMMARY | 2023-04-18 22:28 | XMS_ITS | Encounter Summary ---
Author Name Unknown Organization [facility] Address [address], [place] [address] Care Team Providers Care Product Safety Compliance Leader Name Role Phone Scotty Mora MD Primary Care Provider [phone] Encounter Details Date Type Department Care Team Description 05/17/2022 7:10 PM CONSTRUCTION TECHNICIAN Lab Visit [facility] [address] [place] [address] Dizziness; Low ferritin Social History [...] Department Care Team Description 05/16/2023 11:40 AM CONSTRUCTION TECHNICIAN Appointment [facility]ty Center [address] [place] [address]. [place] [address] Suzanne Joshua MD [address] [place] [phone] documented as of this encounter Procedures Procedure Name Priority Date/Time Associated Diagnosis Comments BASIC METABOLIC PANEL STAT 05/17/2022 7:22 PM CONSTRUCTION TECHNICIAN Dizziness COMPLETE BLOOD COUNT-NO DIFF Routine 05/17/2022 7:22 PM CONSTRUCTION TECHNICIAN Dizziness FERRITIN Routine 05/17/2022 7:22 PM CONSTRUCTION TECHNICIAN Low ferritin Dizziness IRON PROFILE (IRON,TIBC,%SAT.(CA LC)) Routine 05/17/2022 7:22 PM CONSTRUCTION TECHNICIAN Low ferritin Dizziness documented in this encounter Results * Basic Metabolic Panel (05/17/2022 7:22 PM CONSTRUCTION TECHNICIAN) Pathologist [facility] Sodium 139 136 - 145 mmol/L 05/17/2022 8:24 PM [facility] Potassium 3.6 3.5 - 5.1 mmol/L 05/17/2022 8:24 PM [facility] Chloride 105 98 - 109 mmol/L 05/17/2022 8:24 PM [facility] CO2 26 20 - 29 mmol/L 05/17/2022 8:24 PM [facility] Anion Gap 8 7 - 16 mmol/L 05/17/2022 8:24 PM [facility] Calcium 9.3 8.4 - 10.4 mg/dL 05/17/2022 8:24 PM [facility] BUN 14 7 - 26 mg/dL 05/17/2022 8:24 PM [facility] Creatinine 0.65 0.55 - 1.02 mg/dL 05/17/2022 8:24 PM [facility] Glucose 82 70 - 100 mg/dL 05/17/2022 8:24 PM [facility] Comment:The given reference range is for the fasting state. Non-fasting reference range for glucose is 70 - 180 mg/dL. Hours Fasting 8 05/17/2022 8:24 PM [facility] GFR, Estimated >60 >60 mL/min/1.7 3m2 05/17/2022 8:24 PM [facility] Blood Venipuncture / Unknown 05/17/2022 7:22 PM CONSTRUCTION TECHNICIAN 05/17/2022 7:23 PM CONSTRUCTION TECHNICIAN Torito Vázquez MD LAB_[address] [address], [facility] [phone] [facility] [address] [place] [id number] [place] [address] * Ferritin (05/17/2022 7:22 PM CONSTRUCTION TECHNICIAN) Pathologist [facility] Ferritin 9 9 - 204 ng/mL 05/17/2022 8:42 PM CONSTRUCTION TECHNICIAN [facility] Blood Venipuncture / Unknown 05/17/2022 7:22 PM CONSTRUCTION TECHNICIAN 05/17/2022 7:23 PM CONSTRUCTION TECHNICIAN Torito Vázquez MD LAB_[address] [address], [facility] [phone] * Iron Profile (Iron,TIBC,%Sat.(Calc)) (05/17/2022 7:22 PM CONSTRUCTION TECHNICIAN) [facility] Iron 111 50 - 170 mcg/dL 05/17/2022 8:24 PM [facility] Transferrin 324 180 - 382 mg/dL 05/17/2022 8:24 PM [facility] TIBC, Calculated 405 240 - 450 mcg/dL 05/17/2022 8:24 PM [facility] % Saturation, Calculated 27 10 - 50 % 05/17/2022 8:24 PM [facility] Blood Venipuncture / Unknown 05/17/2022 7:22 PM CONSTRUCTION TECHNICIAN 05/17/2022 7:23 PM CONSTRUCTION TECHNICIAN Torito Vázquez MD LAB_[address] [address], [facility] [phone] * (ABNORMAL) Complete Blood Count-No Diff (05/17/2022 7:22 PM CONSTRUCTION TECHNICIAN) Pathologist [facility] WBC 6.6 3.5 - 10.5 x10(9)/L 05/17/2022 7:33 PM [facility] RBC 3.87(L) 3.90 - 5.03 x10(12)/L 05/17/2022 7:33 PM [facility] Hemoglobin 11.8(L) 12.0 - 15.5 g/dL 05/17/2022 7:33 PM [facility] HCT 35.8 34.9 - 44.5 % 05/17/2022 7:33 PM [facility] MCV 92.5 80.0 - 100.0 fL 05/17/2022 7:33 PM [facility] MCH 30.5 27.6 - 33.3 pg 05/17/2022 7:33 PM [facility] MCHC 33.0 31.5 - 35.2 g/dL 05/17/2022 7:33 PM [facility] RDW 13.1 11.9 - 15.5 % 05/17/2022 7:33 PM [facility] Platelets 215 150 - 450 x10(9)/L 05/17/2022 7:33 PM [facility] Blood Venipuncture / Unknown 05/17/2022 7:22 PM CONSTRUCTION TECHNICIAN 05/17/2022 7:23 PM CONSTRUCTION TECHNICIAN Torito Vázquez MD LAB_1 [facility] [address] [phone] documented in this encounter Visit Diagnoses Diagnosis Dizziness Dizziness and giddiness Low ferritin Other nonspecific findings on examination of blood documented in this encounter Care Teams Product Safety Compliance Leader Relationship Specialty Start Date End Date Scotty Mora MD [address] [place] [address] PCP - General Internal Medicine 05/15/16 documented as of this encounter
--- OUTSIDE RECORDS SUMMARY | 2023-04-18 22:28 | XMS_ITS | Encounter Summary ---
Author Name Unknown Organization [facility] Address [address] [place] [address] Care Team Providers Care Composite Layup Worker Name Role Phone Scotty Mora MD Primary Care Provider [phone] Encounter Details Date Type Department Care Team Description 11/14/[address] [facility] 401 Allergy Clinic 401 [place] [address] Ramana Stanley MD [address] [place] [address] [employer]NAPHY[employer]AN Social History Tobacco [...] Department Care Team Description 05/16/2023 11:40 AM ASSOCIATE CURATOR Appointment Specialty [place] 401 Otolaryngology 401 [facility]. [place], [place] [id number] Suzanne Joshua MD [address] [place] [id number] documented as of this encounter Visit Diagnoses Not on filedocumented in this encounter Additional Health Concerns Infection Onset Date Last Indicated Resolved Time R/O COVID19 11/05/2019 11/05/2019 11/05/2019 6:50 PM CDT COVID19 11/05/2019 11/05/2019 11/26/2019 3:17 AM CDT documented as of this encounter Care Teams Composite Layup Worker Relationship Specialty Start Date End Date Scotty Mora MD [address] [place] [address] PCP - General Internal Medicine 05/15/16 documented as of this encounter
--- OUTSIDE RECORDS SUMMARY | 2023-04-18 22:28 | XMS_ITS | Encounter Summary ---
Author Name Unknown Organization [facility] Address [address], [place] [address] Care Team Providers Care Career Portals Teacher Name Role Phone Scotty Mora MD Primary Care Provider [phone] Encounter Details Date Type Department Care Team [...] Department Care Team Description 05/16/2023 11:40 AM INTERMODAL OWNER OPERATOR TRUCK DRIVER Appointment Specialty Center 401 Ot[address]aryngology 401 [facility] [place] [address] Suzanne Joshua MD [address] [place], [place] [phone] documented as of this encounter Visit Diagnoses Not on filedocumented in this encounter Additional Health Concerns Infection Onset Date Last Indicated Resolved Time R/O COVID19 11/05/2019 11/05/2019 11/05/2019 6:50 PM CDT COVID19 11/05/2019 11/05/2019 11/26/2019 3:17 AM CDT documented as of this encounter Care Teams Career Portals Teacher Relationship Specialty Start Date End Date Scotty Mora MD [address] [place] [address] PCP - General Internal Medicine 05/15/16 documented as of this encounter
== END 2023-04-19 00:01 | disposition home or self-care (01) ==
PROVIDERS: Emergency Provider Family Medicine
DX: R10.9 Unspecified abdominal pain (principal); K92.1 Melena
CPT/HCPCS: 36415; 82270; 85025; 99283; 99284